=== PATIENT | male | born 1940 | race Caucasian/White ===

== ENCOUNTER 2017-08-28 05:23 | Emergency (ER) | payer BC ==
[2017-08-28] MEDS ORDERED: ASPIRIN 81 MG CHEWABLE TABLET PO ONE (05:28)
--- NOTE | 2017-08-28 05:44 | Emergency Department Record ---
History of Present Illness - General Chief Complaint: Chest Pain Stated Complaint: CHEST PAIN Time Seen by Provider: 08/28/17 05:27 Source: Patient Mode of Arrival: Ambulatory Limitations: No limitations - History of Present Illness Initial Comments: 76 yo male presents to ED for evaluation of right sided chest pain symptoms, increased fatigue, and difficulty in breathing. Patient reports history of CAD s/p stent placement approximately 18 years ago, denies history of lung disease. Patient denies pain with deep inspiration or history of DVT. Patient denies fevers, chills, or cough symptoms. Patient reports that he sees Dr. Aguero for his cardiac needs. MD Complaint: Chest pain Onset/Timin -: Days(s) Pain Location: Right chest Severity: Moderate Severity scale (1-10): 6 Quality: Sharp Consistency: Constant Improves With: Nothing Worsens With: Nothing Treatments Prior to Arrival: None - Related Data Home Medications Medication Instructions Recorded Confirmed Last Taken Adalimumab [Humira Pen] 40 mg SC ASDIR 08/28/17 08/28/17 Unknown Alfuzosin HCl [Alfuzosin HCl ER] 10 mg PO DAILY 08/28/17 08/28/17 Unknown Amlodipine Besylate [Norvasc] 10 mg PO DAILY 08/28/17 08/28/17 Unknown Atorvastatin Calcium [Lipitor] 20 mg PO DAILY 08/28/17 08/28/17 Unknown Carvedilol 12.5 mg PO BID 08/28/17 08/28/17 Unknown Cephalexin 500 mg PO QID 08/28/17 08/28/17 Unknown Cholecalciferol (Vitamin D3) 1,000 unit PO DAILY 08/28/17 08/28/17 Unknown [Vitamin D3] Fenofibrate Nanocrystallized 160 mg PO DAILY 08/28/17 08/28/17 Unknown [Triglide] Fish Oil/Dha/Epa [Fish Oil 1,200 2 each PO DAILY 08/28/17 08/28/17 Unknown mg Fish Oil] Fluoxetine HCl 20 mg PO DAILY 08/28/17 08/28/17 Unknown Omeprazole 40 mg PO DAILY 08/28/17 08/28/17 Unknown Quinapril HCl 40 mg PO DAILY 08/28/17 08/28/17 Unknown Tramadol HCl 50 mg PO BID 08/28/17 08/28/17 Unknown Allergies Allergy/AdvReac Type Severity Reaction Status Date / Time Sulfa (Sulfonamide Allergy pt unsure Verified 08/28/17 05:25 Antibiotics) Travel Screening - Travel/Exposure Within Last 30 Days Have you traveled within the last 30 days?: No Review of Systems Constitutional: Denies: Chills, Fever, Malaise, Night sweats Eyes: Denies: Eye discharge, Eye pain ENT: Denies: Congestion, Ear pain, Epistaxis Respiratory: Denies: Cough, Dyspnea Cardiovascular: Reports: Chest pain. Denies: Dyspnea on exertion Endocrine: Denies: Fatigue, Heat or cold intolerance Gastrointestinal: Denies: Abdominal pain, Nausea, Vomiting Genitourinary: Denies: Incontinence, Retention Musculoskeletal: Denies: Arthralgia, Back pain, Gout, Joint swelling Skin: Denies: Bruising, Change in color Neurological: Denies: Abnormal gait, Confusion, Headache, Seizure Psychiatric: Denies: Anxiety Hematological/Lymphatic: Denies: Anemia, Blood Clots Past Medical History - SOCIAL HISTORY Smoking Status: Never smoker Alcohol Use: None Drug Use: None - RESPIRATORY Hx Respiratory Disorders: No - CARDIOVASCULAR Hx Cardio Disorders: Yes Hx Cardiac Cath: Yes Hx Hypertension: Yes Comment:: "Leaky Valve" - NEURO Hx Neuro Disorders: No - GI Hx GI Disorders: Yes Hx Reflux: Yes - Hx Genitourinary Disorders: Yes Hx Renal Disease: Yes - ENDOCRINE Hx Endocrine Disorders: No - MUSCULOSKELETAL Hx Musculoskeletal Disorders: No - PSYCH Hx Psych Problems: Yes Hx Depression: Yes - HEMATOLOGY/ONCOLOGY Hx Hematology/Oncology Disorders: No Family Medical History Any Significant Family History?: Yes Hx Heart Disease: Father Physical Exam - General General Appearance: Alert, Oriented x3, Cooperative, No acute distress Limitations: No limitations - Head Head exam: Atraumatic, Normocephalic, Normal inspection Head exam detail: negative: Abrasion, Contusion, Merchant's sign, General tenderness, Hematoma, Laceration - Eye Eye exam: Normal appearance. negative: Conjunctival injection, Periorbital swelling, Periorbital tenderness, Scleral icterus - ENT Ear exam: negative: Auricular hematoma, Auricular trauma Nasal Exam: negative: Active bleeding, Discharge, Dried blood, Foreign body Mouth exam: negative: Drooling, Laceration, Muffled voice, Tongue elevation - Neck Neck exam: Normal inspection. negative: Meningismus, Tenderness - Respiratory Respiratory exam: Normal lung sounds bilaterally. negative: Rales, Respiratory distress, Rhonchi, Stridor - Cardiovascular Cardiovascular Exam: Regular rate, Normal rhythm, Normal heart sounds - GI/Abdominal GI/Abdominal exam: Soft. negative: Rebound, Rigid, Tenderness - Rectal Rectal exam: Deferred - exam: Deferred - Extremities Extremities exam: Normal inspection. negative: Calf tenderness, Pedal edema, Tenderness - Back Back exam: Denies: CVA tenderness (R), CVA tenderness (L) - Neurological Neurological exam: Alert, Normal gait, Oriented X3 - Psychiatric Psychiatric exam: Normal affect, Normal mood - Skin Skin exam: Normal color. negative: Abrasion Type of lesion: negative: abrasion Course Vital Signs 08/28/17 08/28/17 05:26 05:34 Temperature 97.5 F L Pulse Rate [ 64 59 L Security Associate ] Respiratory 16 20 Rate Blood Pressure 180/96 180/96 [Right Arm] Pulse Ox 99 99 - Reevaluation(s) Reevaluation #1: 08/28/17 05:43 EKG: NSR 59 Indeterminate axis, normal intervals No acute ST-T wave changes Unchanged from 03/22/17 Reevaluation #2: 08/28/17 06:14 Labs reviewed and are grossly unremarkable for an acute process. D-Dimer 0.34 BNP 115. CXR: No acute process Patient was updated on all results, will initiate transfer to [facility] for cardiac evaluation. Reevaluation #3: 08/28/17 06:18 CXR: Negative Reevaluation #4: 08/28/17 06:22 Case was discussed with Dr. Stearns, will accept transfer to [facility] for cardiac evaluation. Medical Decision Making - Lab Data Result diagrams: 08/28/17 05:37 08/28/17 05:37 Disposition Disposition: Transfer Clinical Impression: Chest pain Qualifiers: Chest pain type: unspecified Qualified Code(s): R07.9 - Chest pain, unspecified Disposition: Acute Care Hospital Transfer Transfer To: [facility] Reason For Transfer: cardiac evaluation Accepting Physician: Daryn Time Discussed w/Accepting Physician: 06:22 Condition: (2) Stable Forms: Patient Portal Access Time of Disposition: 06:22 Quality - Quality Measures Quality Measures: N/A - Blood Pressure Screening Does Patient Have Any of the Following: Active Dx of HTN Blood Pressure Classification: Hypertensive Reading Systolic Measurement: 180 Diastolic Measurement: 96 Screening for High Blood Pressure: Patient Exclusion, Hx of HTN [[id number]]
[2017-08-28 05:47] LABS: BASO % 0.6 % (0-6); EOS % 5.9 % (0-6); HEMATOCRIT 35.4 % (42.0-52.0); HEMOGLOBIN 12.1 gm/dl (14.0-18.0); LYMPH % 35.5 % (16-45); MEAN CELL VOLUME 90.1 fl (81-97); MEAN CORPUSCULAR HGB CONC 34.2 g/dl (32-36); MEAN PLATELET VOLUME 8.6 fl (7.4-10.4); PLATELET COUNT 142 K/uL (130-400); RED BLOOD COUNT 3.93 M/uL (4.40-5.70); RED CELL DISTRIBUTION WIDTH 13.1 % (11.5-14.5); WHITE BLOOD COUNT W/O DIFF 3.2 K/uL (4.2-12.2)
[2017-08-28 05:49] LABS: MEAN CORPUSCULAR HEMOGLOBIN 30.7 pg (27-33)
[2017-08-28 05:59] LABS: BLOOD UREA NITROGEN 39 mg/dL (8-23); CREATININE 1.6 mg/dL (0.7-1.2); EST GLOMERULAR FILTRATION RATE 45 mL/min
[2017-08-28 06:00] LABS: TOTAL PROTEIN 6.9 g/dL (6.6-8.7)
[2017-08-28 06:02] LABS: GLUCOSE,RANDOM 108 mg/dL (74-109)
[2017-08-28 06:04] LABS: ALB/GLOB RATIO 1.5 (1.1-1.8); ALBUMIN 4.1 g/dL (4.0-5.0); ALT/SGPT 28 U/L (<41); AST/SGOT 27 U/L (10.0-50.0)
[2017-08-28 06:05] LABS: ALKALINE PHOSPHATASE 40 U/L (40-129)
[2017-08-28] MEDS ORDERED: MORPHINE SULFATE 4MG/ML PREFILLED SYRINGE IVP ONE (06:44)
--- NOTE | 2017-08-28 13:53 | RADIOLOGY REPORT ---
EXAM: CHEST, TWO VIEWS HISTORY: MID CHEST PAIN, SHORTNESS OF BREATH FOR THREE DAYS. TECHNIQUE: PA and lateral views of the chest were obtained. Comparison: None. FINDINGS: The heart size is normal. No definite acute infiltrate is seen. No pleural effusion or pneumothorax evident. Some spurring in the spine. Old right fifth rib fracture posteriorly. Mild torsion of the aorta. IMPRESSION: 1. NO ACUTE INFILTRATE EVIDENT. 2. MILD TORSION OF THE AORTA. 3. OLD RIGHT FIFTH RIB FRACTURE. JOB NUMBER: [id number] MTDD
== END 2017-08-28 08:19 | disposition short-term general hospital (02) ==
LOC: ER 05:23
DX: R07.9 Chest pain, unspecified (principal); R06.00 Dyspnea, unspecified; I25.10 Atherosclerotic heart disease of native coronary artery without angina pectoris; I10 Essential (primary) hypertension; Z95.5 Presence of coronary angioplasty implant and graft
CPT/HCPCS: 71046; 80053; 83880; 84484; 85025; 85379; 93005; 93010; 96374; 99285; J2274

== ENCOUNTER 2019-04-08 11:04 | Observation (INO) | payer BC ==
--- NOTE | 2019-04-08 11:28 | Emergency Department Record ---
History of Present Illness - General Chief complaint: Male Urogenital Problem Stated complaint: UNABLE TO URINATE Time Seen by Provider: 04/08/19 11:25 Source: Patient Mode of Arrival: Wheelchair Limitations: No limitations - History of Present Illness Initial comments: pt has been having difficulty urinating and dysura since last night. he started getting the chills today and having nausea and vomiting MD Complaint: Dysuria Onset/Timin -: Days(s) Location: Left flank, Right flank Radiation: Back Consistency: Getting worse Reports: Dysuria, Nausea/vomiting - Related Data Sexually active: No Allergies Allergy/AdvReac Type Severity Reaction Status Date / Time Sulfa (Sulfonamide Allergy pt unsure Verified 04/08/19 11:18 Antibiotics) Travel Screening - Travel/Exposure Within Last 30 Days Have you traveled within the last 30 days?: No - Travel/Exposure Within Last Year Have you traveled outside the [place] in the last year?: No - Additonal Travel Details Have you been exposed to anyone with a communicable illness?: No - Travel Symptoms Symptom Screening: Joint & Muscle Aches Review of Systems Reviewed: No additional complaints except as noted below Constitutional: Reports: As per HPI. Denies: Chills, Fever, Malaise, Night sweats, Weakness, Weight change Eyes: Reports: As per HPI. Denies: Eye discharge, Eye pain, Photophobia, Vision change ENT: Reports: As per HPI. Denies: Congestion, Dental pain, Ear pain, Epistaxis, Hearing loss, Throat pain Respiratory: Reports: As per HPI. Denies: Cough, Dyspnea, Hemoptysis, Stridor, Wheezes Cardiovascular: Reports: As per HPI. Denies: Arrhythmia, Chest pain, Dyspnea on exertion, Edema, Murmurs, Orthopnea, Palpitations, Paroxysmal nocturnal dyspnea, Rheumatic Fever, Syncope Endocrine: Reports: As per HPI. Denies: Fatigue, Heat or cold intolerance, Polydipsia, Polyuria Gastrointestinal: Reports: As per HPI. Denies: Abdominal pain, Constipation, Diarrhea, Hematemesis, Hematochezia, Melena, Nausea, Vomiting Genitourinary: Reports: As per HPI, Dysuria, Frequency. Denies: Hematuria, Incontinence, Retention, Testicular pain, Testicular mass, Urgency Musculoskeletal: Reports: As per HPI. Denies: Arthralgia, Back pain, Gout, Joint swelling, Myalgia, Neck pain Skin: Reports: As per HPI. Denies: Bruising, Change in color, Change in hair/nails, Lesions, Pruritus, Rash Neurological: Reports: As per HPI. Denies: Abnormal gait, Confusion, Headache, Numbness, Paresthesias, Seizure, Tingling, Tremors, Vertigo, Weakness Psychiatric: Reports: As per HPI. Denies: Anxiety, Auditory hallucinations, Depression, Homicidal thoughts, Suicidal thoughts, Visual hallucinations Hematological/Lymphatic: Reports: As per HPI. Denies: Anemia, Blood Clots, Easy bleeding, Easy bruising, Swollen glands Past Medical History - SOCIAL HISTORY Smoking Status: Never smoker Alcohol Use: None Drug Use: None - RESPIRATORY Hx Respiratory Disorders: No Hx COPD: (undx'd) - CARDIOVASCULAR Hx Cardio Disorders: Yes Hx Cardiac Cath: Yes Hx Hypertension: Yes Comment:: "Leaky Valve" - NEURO Hx Neuro Disorders: No - GI Hx GI Disorders: Yes Hx Reflux: Yes - Hx Genitourinary Disorders: Yes Hx Renal Disease: Yes - ENDOCRINE Hx Endocrine Disorders: No - MUSCULOSKELETAL Hx Musculoskeletal Disorders: No - PSYCH Hx Psych Problems: Yes Hx Depression: Yes - HEMATOLOGY/ONCOLOGY Hx Hematology/Oncology Disorders: No Family Medical History Any Significant Family History?: No Hx Heart Disease: Father Physical Exam - General General Appearance: Alert, Oriented x3, Cooperative, Mild distress - Head Head exam: Normal inspection - Eye Eye exam: Normal appearance, PERRL, EOMI Pupils: Normal accommodation - ENT ENT exam: Normal exam, Mucous membranes moist, Normal external ear exam, Normal orophraynx Ear exam: Normal external inspection. negative: External canal tenderness Nasal Exam: Normal inspection. negative: Discharge, Sinus tenderness Mouth exam: Normal external inspection, Tongue normal Teeth exam: Normal inspection. negative: Dental caries Throat exam: Normal inspection. negative: Tonsillar erythema, Tonsillar exudate - Neck Neck exam: Normal inspection, Full ROM. negative: Tenderness - Respiratory Respiratory exam: Normal lung sounds bilaterally. negative: Respiratory distress - Cardiovascular Cardiovascular Exam: Regular rate, Normal rhythm, Normal heart sounds - GI/Abdominal GI/Abdominal exam: Soft, Normal bowel sounds. negative: Tenderness - Rectal Rectal exam: Deferred - exam: Deferred - Extremities Extremities exam: Normal inspection, Full ROM, Normal capillary refill. negat naz: Tenderness - Back Back exam: Reports: Normal inspection, Full ROM. Denies: Muscle spasm, Rash noted, Tenderness - Neurological Neurological exam: Alert, CN II-XII intact, Normal gait, Oriented X3 - Psychiatric Psychiatric exam: Normal affect, Normal mood - Skin Skin exam: Dry, Intact, Normal color, Warm Course Vital Signs 04/08/19 11:08 Temperature 97.4 F L Pulse Rate 89 Respiratory 24 Rate Blood Pressure 173/93 Pulse Ox 99 - Reevaluation(s) Reevaluation #1: 04/08/19 14:07 pt vomited twice despite zofran Medical Decision Making - Lab Data Result diagrams: 04/08/19 11:25 04/08/19 11:25 Disposition Disposition: Admit Clinical Impression: Pyelonephritis Disposition: Still a Patient at [facility] Decision to Admit: Admit from ER Decision to Admit Date: 04/08/19 Decision to Admit Time: 14:08 Forms: Patient Portal Access Quality - Quality Measures Quality Measures: N/A - Blood Pressure Screening Does Patient Have Any of the Following: Active Dx of HTN Blood Pressure Classification: Hypertensive Reading Systolic Measurement: 173 Diastolic Measurement: 93 Screening for High Blood Pressure: Patient Exclusion, Hx of HTN [[id number]]
[2019-04-08] MEDS ORDERED: ONDANSETRON HCL IV 4 MG/2 ML VIAL IVP ONE (11:45)
[2019-04-08 11:51] LABS: ABSOLUTE NEUTROPHIL COUNT 4.76; HEMATOCRIT 38.5 % (42.0-52.0); HEMOGLOBIN 13.2 gm/dl (14.0-18.0); MEAN CELL VOLUME 87.9 fl (81-97); MEAN CORPUSCULAR HEMOGLOBIN 30.1 pg (27-33); MEAN CORPUSCULAR HGB CONC 34.3 g/dl (32-36); MEAN PLATELET VOLUME 8.8 fl (7.4-10.4); PLATELET COUNT 180 K/uL (130-400); RED BLOOD COUNT 4.38 M/uL (4.40-5.70); RED CELL DISTRIBUTION WIDTH 13.6 % (11.5-14.5); WHITE BLOOD COUNT W/O DIFF 5.7 K/uL (4.2-12.2)
[2019-04-08 11:55] LABS: URINE APPEARANCE CLEAR; URINE BILIRUBIN NEGATIVE (NEGATIVE); URINE BLOOD TRACE-I (NEGATIVE); URINE COLOR YELLOW; URINE GLUCOSE (UA) NEGATIVE (NEGATIVE); URINE KETONE NEGATIVE (NEGATIVE); URINE LEUKOCYTE ESTERASE SMALL (NEGATIVE); URINE NITRITE NEGATIVE (NEGATIVE); URINE UROBILINOGEN 0.2 E.U./dL (0.20 - 1.00)
[2019-04-08 11:58] LABS: CREATININE 1.7 mg/dL (0.7-1.2)
[2019-04-08 12:03] LABS: URINE BACTERIA NONE SEEN; URINE EPITHELIAL CELLS NONE SEEN (FEW); URINE RBC 0 - 2 (NONE SEEN)
[2019-04-08 12:05] LABS: INFLUENZA A NEGATIVE (NEGATIVE); INFLUENZA B NEGATIVE (NEGATIVE)
[2019-04-08] MEDS ORDERED: PROMETHAZINE HCL 6.25 MG in 0.9 % SODIUM CHLORIDE 100ML 100 ML IVPB ONE (12:58)
[2019-04-08] MEDS ORDERED: CIPROFLOXACIN LACTATE/D5W 400 MG/200 ML BAG IVPB ONE (13:21)
[2019-04-08] MEDS ORDERED: ACETAMINOPHEN 500 MG TABLET PO PRN (15:03)
[2019-04-08] MEDS ORDERED: ALBUTEROL HFA 8 GM INHALER INH SCH ×2 (15:03→22:00)
[2019-04-08] MEDS ORDERED: LEVOTHYROXINE SODIUM 25 MCG TABLET PO SCH (15:03)
[2019-04-08] MEDS ORDERED: PROMETHAZINE HCL 6.25 MG in 0.9 % SODIUM CHLORIDE 100ML 100 ML IVPB PRN (15:03)
[2019-04-08] MEDS ORDERED: 0.9 % SODIUM CHLORIDE 1000ML 1,000 ML IV ONE (15:03)
[2019-04-08] MEDS ORDERED: LORATADINE 10 MG TABLET PO SCH (15:03)
[2019-04-08] MEDS ORDERED: TRAMADOL HCL 50 MG TABLET PO PRN (15:03)
[2019-04-08] MEDS: CIPROFLOXACIN LACTATE/D5W 400 MG/200 ML BAG IVPB SCH (15:10)
[2019-04-08] MEDS ORDERED: IPRATROPIUM BR 0.02% NEB (0.5MG) INH SCH (15:30)
[2019-04-08] MEDS: GABAPENTIN 300 MG CAPSULE PO SCH ×2 (15:44→21:45)
[2019-04-08] MEDS: ALFUZOSIN 10 MG PO SCH (17:13)
[2019-04-08] MEDS: FENOFIBRATE 160 MG PO SCH (17:14)
[2019-04-08] MEDS: CARVEDILOL 12.5 MG TABLET PO SCH (21:45)
[2019-04-08] MEDS: PHENAZOPYRIDINE HCL 95 MG TABLET PO SCH (23:14)
[2019-04-09] MEDS: CIPROFLOXACIN LACTATE/D5W 400 MG/200 ML BAG IVPB SCH (02:27)
[2019-04-09 06:42] LABS: HEMATOCRIT 31.9 % (42.0-52.0); HEMOGLOBIN 10.7 gm/dl (14.0-18.0); MEAN CELL VOLUME 88.9 fl (81-97); MEAN CORPUSCULAR HEMOGLOBIN 29.8 pg (27-33); MEAN CORPUSCULAR HGB CONC 33.5 g/dl (32-36); MEAN PLATELET VOLUME 8.5 fl (7.4-10.4); PLATELET COUNT 103 K/uL (130-400); RED BLOOD COUNT 3.59 M/uL (4.40-5.70); RED CELL DISTRIBUTION WIDTH 13.7 % (11.5-14.5); WHITE BLOOD COUNT W/O DIFF 4.4 K/uL (4.2-12.2)
[2019-04-09 06:52] LABS: CREATININE 1.8 mg/dL (0.7-1.2)
[2019-04-09] MEDS ORDERED: PANTOPRAZOLE SODIUM 40 MG TABLET PO SCH (07:00)
[2019-04-09 07:09] LABS: PLATELET ESTIMATE DECREASED (NORMAL)
[2019-04-09] MEDS: GABAPENTIN 300 MG CAPSULE PO SCH (09:55)
[2019-04-09] MEDS: PHENAZOPYRIDINE HCL 95 MG TABLET PO SCH (09:55)
[2019-04-09] MEDS: CARVEDILOL 12.5 MG TABLET PO SCH (09:56)
--- NOTE | 2019-04-09 09:58 | History & Physical ---
History of Present Illness - Date of Service Date of Service for History & Physical: 04/09/19 - History of Present Illness Admitting Diagnosis: pyelonephritis History of Present Illness: 04/08/19 Patient is a 78 male that presented to ER for body aches, abdominal pain, nausea/vomiting, bilateral flank pain and dysuria for 1 day. Patient vomited twice while in ER despite being given Zofran for nausea. Patient unable to tolerate PO medications and admitted for IV hydration and antibiotics. Past medical history: HTN, Cardiac Stent, COPD/Chronic Bronchitits, CKD (sees washhouse hand). PCP: Jairo Barbosa MD ED Course: Vital Signs 04/08/19 11:08 Temperature 97.4 F L Pulse Rate 89 Respiratory 24 Rate Blood Pressure 173/93 Pulse Ox 99 Laboratory Tests 04/08/19 04/08/19 04/08/19 11:25 11:25 11:25 WBC 5.7 RBC 4.38 L Hgb 13.2 L Hct 38.5 L MCV 87.9 MCH 30.1 MCHC 34.3 RDW 13.6 Plt Count 180 MPV 8.8 Neutrophils % 84.0 H Band Neutrophils % 1.0 Eosinophils % Not Reportable Basophils % Not Reportable Absolute Neutrophils 4.76 Lymphocytes 12.0 L Monocytes 2.0 Platelet Estimate RBC Morphology Eosinophil Count 1.0 Sodium 138 Potassium 4.4 Chloride 100 Carbon Dioxide 17.0 L Anion Gap 21.0 H BUN 29 H Creatinine 1.7 H Estimated GFR 42 Random Glucose 153 H Calcium 9.7 Urine Color Yellow Urine Appearance Clear Urine pH 6.5 Ur Specific [place] 1.020 Urine Protein 100 mg/dl H Urine Glucose (UA) Negative Urine Ketones Negative Urine Blood Trace-i Urine Nitrite Negative Urine Bilirubin Negative Urine Urobilinogen 0.2 Ur Leukocyte Esterase Small H Urine RBC 0 - 2 Urine WBC 10 - 15 Ur Epithelial Cells None seen Urine Bacteria None seen Influenza Type A Ag Influenza Type B Ag 04/09/19 Patient A&Ox4, resting comfortably in bed. Denies vomiting. Able to tolerate PO intake with breakfast. Patient reports feeling better this AM. Travel Screening - Travel/Exposure Within Last 30 Days Have you traveled within the last 30 days?: No - Travel/Exposure Within Last Year Have you traveled outside the [place] in the last year?: No - Additonal Travel Details Have you been exposed to anyone with a communicable illness?: No - Travel Symptoms Symptom Screening: Joint & Muscle Aches Review of Systems Reviewed: No additional complaints except as noted below Constitutional: Reports: As per HPI, Chills, Malaise. Denies: Fever, Night sweats, Weakness, Weight change Eyes: Reports: As per HPI. Denies: Eye discharge, Eye pain, Photophobia, Vision change ENT: Reports: As per HPI. Denies: Congestion, Dental pain, Ear pain, Epistaxis, Hearing loss, Throat pain Respiratory: Reports: As per HPI. Denies: Cough, Dyspnea, Hemoptysis, Stridor, Wheezes Cardiovascular: Reports: As per HPI. Denies: Arrhythmia, Chest pain, Dyspnea on exertion, Edema, Murmurs, Orthopnea, Palpitations, Paroxysmal nocturnal dyspnea, Rheumatic Fever, Syncope Endocrine: Reports: As per HPI. Denies: Fatigue, Heat or cold intolerance, Polydipsia, Polyuria Gastrointestinal: Reports: As per HPI, Abdominal pain, Nausea, Vomiting. Denies: Constipation, Diarrhea, Hematemesis, Hematochezia, Melena Genitourinary: Reports: As per HPI, Dysuria, Frequency. Denies: Hematuria, Incontinence, Retention, Testicular pain, Testicular mass, Urgency Musculoskeletal: Reports: As per HPI. Denies: Arthralgia, Back pain, Gout, Joint swelling, Myalgia, Neck pain Skin: Reports: As per HPI. Denies: Bruising, Change in color, Change in hair/nails, Lesions, Pruritus, Rash Neurological: Reports: As per HPI. Denies: Abnormal gait, Confusion, Headache, Numbness, Paresthesias, Seizure, Tingling, Tremors, Vertigo, Weakness Psychiatric: Reports: As per HPI. Denies: Anxiety, Auditory hallucinations, Depression, Homicidal thoughts, Suicidal thoughts, Visual hallucinations Hematological/Lymphatic: Reports: As per HPI. Denies: Anemia, Blood Clots, Easy bleeding, Easy bruising, Swollen glands Past Medical History - SOCIAL HISTORY Smoking Status: Never smoker Alcohol Use: None Drug Use: None - RESPIRATORY Hx Respiratory Disorders: No Hx COPD: (undx'd) - CARDIOVASCULAR Hx Cardio Disorders: Yes Hx Cardiac Cath: Yes Hx Hypertension: Yes Comment:: "Leaky Valve" - NEURO Hx Neuro Disorders: No - GI Hx GI Disorders: Yes Hx Reflux: Yes - Hx Genitourinary Disorders: Yes Hx Renal Disease: Yes - ENDOCRINE Hx Endocrine Disorders: Yes Hx Thyroid Disease: Yes - MUSCULOSKELETAL Hx Musculoskeletal Disorders: No - PSYCH Hx Psych Problems: Yes Hx Depression: Yes - HEMATOLOGY/ONCOLOGY Hx Hematology/Oncology Disorders: No Family Medical History Any Significant Family History?: Yes Hx Heart Disease: Father H&P Meds/Allergies - Allergies Allergies: Allergies Allergy/AdvReac Type Severity Reaction Status Date / Time Sulfa (Sulfonamide Allergy pt unsure Verified 04/08/19 11:18 Antibiotics) - Active Medications Active Medications: Current Medications Acetaminophen (Tylenol 500mg Tab) 1,000 mg PO Q6H PRN PRN Reason: PAIN - MILD(1-4)/FEVER Albuterol Sulfate (Ventolin Hfa) 2 puff INH BID [facility] Last Admin: 04/09/19 09:35 Dose: 2 puff Documented by: Amlodipine Besylate (Norvasc) 10 mg PO DAILY [facility] Aspirin (Aspirin, Regular) 325 mg PO DAILY [facility] Atorvastatin Calcium (Lipitor) 40 mg PO DAILY [facility] Carvedilol (Coreg) 12.5 mg PO BID [facility] Last Admin: 04/08/19 21:45 Dose: 12.5 mg Documented by: Fluoxetine HCl (Prozac) 40 mg PO DAILY [facility] Gabapentin (Neurontin) 300 mg PO TID [facility] Last Admin: 04/08/19 21:45 Dose: 300 mg Documented by: Hydrochlorothiazide (Hctz 12.5mg) 12.5 mg PO DAILY [facility] Ciprofloxacin Lactate (Cipro) 400 mg in 200 mls @ 200 mls/hr IVPB Q12H [facility] Stop: 04/13/19 15:04 Last Infusion: 04/09/19 04:13 Dose: Infused Documented by: Promethazine HCl 6.25 mg/ (Sodium Chloride) 100.25 mls @ 200 mls/hr IVPB Q6H PRN PRN Reason: NAUSEA/VOMITING Ipratropium [place] (Atrovent 0.02% Neb) 2.5 ml INH 1200 [facility] Levothyroxine Sodium (Synthroid) 25 mcg PO DAILYTHY [facility] Loratadine (Claritin) 10 mg PO DAILY [facility] Losartan Potassium (Cozaar) 50 mg PO DAILY [facility] Meloxicam (Mobic) 15 mg PO DAILY [facility] Pantoprazole Sodium (Protonix) 80 mg PO DAILYAC [facility] Last Admin: 04/09/19 06:27 Dose: 80 mg Documented by: Patient Own Med: (Fenofibrate 160mg) 1 each PO DAILY [facility] Last Admin: 04/08/19 17:14 Dose: Not Given Documented by: Patient Own Med: Alfuzosin (Uroxatral ) 10mg Tablet 1 each PO DAILY [facility] Last Admin: 04/08/19 17:13 Dose: 1 each Documented by: Phenazopyridine HCl (Azo Urinary Pain Relief) 190 mg PO TID [facility] Last Admin: 04/08/19 23:14 Dose: 190 mg Documented by: Tramadol HCl (Ultram) 50 mg PO TID PRN PRN Reason: PAIN - MILD TO MODERATE (1-7) Physical Exam - Vital Signs Vital Signs: Vital Signs - Last 24 Hrs Temp Pulse Pulse Resp BP BP Pulse Ox 04/09/19 09:36 88 18 96 04/09/19 08:36 98.6 F 81 18 139/71 96 04/09/19 05:00 98.4 F 80 18 143/72 97 04/09/19 00:11 98.6 F 71 18 141/72 96 04/08/19 21:03 97.9 F 87 18 143/85 97 04/08/19 21:00 16 04/08/19 15:25 20 04/08/19 15:03 98.5 F 95 H 16 137/76 100 04/08/19 14:38 104 H 18 143/90 95 04/08/19 13:01 98.1 F 96 H 18 159/92 100 04/08/19 12:23 98.3 F 93 H 20 181/89 98 04/08/19 11:44 97.8 F 04/08/19 11:08 97.4 F L 89 24 173/93 99 - General General Appearance: Alert, Oriented x3, Cooperative Limitations: No limitations - Head Head exam: Normal inspection - Eye Eye exam: Normal appearance - ENT ENT exam: Normal exam, Mucous membranes moist Ear exam: negative: External canal tenderness Nasal Exam: negative: Discharge, Sinus tenderness Teeth exam: negative: Dental caries Throat exam: negative: Tonsillar erythema, Tonsillar exudate - Neck Neck exam: Normal inspection, Full ROM. negative: Tenderness - Respiratory Respiratory exam: Normal lung sounds bilaterally. negative: Respiratory distress - Cardiovascular Cardiovascular Exam: Regular rate, Normal rhythm, Normal heart sounds Peripheral Pulses: 2+: Dorsalis Pedis (R), Dorsalis Pedis (L) - GI/Abdominal GI/Abdominal exam: Soft, Normal bowel sounds, Tenderness (generalized tenderness with palpation throughout) - Rectal Rectal exam: Deferred - exam: Deferred - Extremities Extremities exam: Normal inspection, Full ROM, Normal capillary refill. negative: Tenderness - Back Back exam: Reports: Full ROM. Denies: Muscle spasm, Rash noted, Tenderness - Neurological Neurological exam: Alert, Oriented X3 - Psychiatric Psychiatric exam: Normal affect, Normal mood - Skin Skin exam: Dry, Intact, Normal color, Warm Results - Labs Result Diagrams: 04/09/19 06:25 04/09/19 06:25 Labs Last 24 Hours: Laboratory Results - last 24 hr 04/08/19 04/08/19 04/08/19 11:25 11:25 11:25 WBC 5.7 RBC 4.38 L Hgb 13.2 L Hct 38.5 L MCV 87.9 MCH 30.1 MCHC 34.3 RDW 13.6 Plt Count 180 MPV 8.8 Neutrophils % 84.0 H Band Neutrophils % 1.0 Eosinophils % Not Reportable Basophils % Not Reportable Absolute Neutrophils 4.76 Lymphocytes 12.0 L Monocytes 2.0 Platelet Estimate RBC Morphology Eosinophil Count 1.0 Sodium 138 Potassium 4.4 Chloride 100 Carbon Dioxide 17.0 L Anion Gap 21.0 H BUN 29 H Creatinine 1.7 H Estimated GFR 42 Random Glucose 153 H Calcium 9.7 Urine Color Yellow Urine Appearance Clear Urine pH 6.5 Ur Specific [place] 1.020 Urine Protein 100 mg/dl H Urine Glucose (UA) Negative Urine Ketones Negative Urine Blood Trace-i Urine Nitrite Negative Urine Bilirubin Negative Urine Urobilinogen 0.2 Ur Leukocyte Esterase Small H Urine RBC 0 - 2 Urine WBC 10 - 15 Ur Epithelial Cells None seen Urine Bacteria None seen Influenza Type A Ag Influenza Type B Ag 04/08/19 04/09/19 04/09/19 11:25 06:25 06:25 WBC 4.4 RBC 3.59 L Hgb 10.7 L Hct 31.9 L MCV 88.9 MCH 29.8 MCHC 33.5 RDW 13.7 Plt Count 103 L MPV 8.5 Neutrophils % 77.0 Band Neutrophils % 3.0 Eosinophils % Not Reportable Basophils % Not Reportable Absolute Neutrophils Not Reportable Lymphocytes 11.0 L Monocytes 9.0 Platelet Estimate Decreased RBC Morphology Normal Eosinophil Count Sodium 137 Potassium 4.1 Chloride 104 Carbon Dioxide 19.0 L Anion Gap 14.0 BUN 28 H Creatinine 1.8 H Estimated GFR 39 Random Glucose 112 H Calcium 8.5 L Urine Color Urine Appearance Urine pH Ur Specific [place] Urine Protein Urine Glucose (UA) Urine Ketones Urine Blood Urine Nitrite Urine Bilirubin Urine Urobilinogen Ur Leukocyte Esterase Urine RBC Urine WBC Ur Epithelial Cells Urine Bacteria Influenza Type A Ag Negative Influenza Type B Ag Negative VTE H&P Assessment - Risk for VTE Risk for VTE: Yes Risk Level: Low Risk Assessment Date: 04/09/19 Risk Assessment Time: 10:01 VTE Orders Placed or Will Be Placed: No VTE Reason for No Prophylaxis: Not Indicated (Patient expected D/C today. Ambulating ad giovanni in room without difficulty.) Plan - Detailed Diagnosis and Plan (1) Pyelonephritis Current Visit: Yes Status: Acute Base Code: N12 - TUBULO-INTERSTITIAL NEPHRITIS, NOT SPCF ACUTE OR CHRONIC Comment: 04/09/19 -IV hydration: NS 100ml/hr -IV Cipro 400mg q12h -UA small Leuks, 10-15 WBC -Dysuria on Pyridium -Afebrile -WBC 5.7 (2) Nausea & vomiting Current Visit: Yes Status: Acute Base Code: R11.2 - NAUSEA WITH VOMITING, UNSPECIFIED Comment: 04/09/19 -Vomiting in ER despite receiving 2 doses of Zofran -Received Phenergan on admission -Nausea controlled -Tolerating PO intake (3) HTN (hypertension) Current Visit: Yes Status: Acute Base Code: I10 - ESSENTIAL (PRIMARY) HYPERTENSION Comment: 04/09/19 -Last BP 139/71 -Continue Coreg -Continue HCTZ -Continue Amlodipine (4) CKD (chronic kidney disease) Current Visit: Yes Status: Acute Base Code: N18.9 - CHRONIC KIDNEY DISEASE, UNSPECIFIED Comment: 04/09/19 -Cr 1.7 -GFR 42 -At baseline -Patient follows with Dobby Loom Fixer annually (5) DVT prophylaxis Current Visit: Yes Status: Acute Base Code: Z29.9 - ENCOUNTER FOR PROPHYL ACTIC MEASURES, UNSPECIFIED Comment: 04/09/19 -Patient ambulating in room without assist -Anticipated D/C within 24 hours (6) Full code status Current Visit: Yes Status: Acute Base Code: Z78.9 - OTHER SPECIFIED HEALTH STATUS
[2019-04-09] MEDS ORDERED: LEVOTHYROXINE SODIUM 25 MCG TABLET PO SCH (10:00)
[2019-04-09] MEDS ORDERED: LORATADINE 10 MG TABLET PO SCH (10:00)
[2019-04-09] MEDS ORDERED: ALBUTEROL HFA 8 GM INHALER INH SCH (10:00)
[2019-04-09] MEDS ORDERED: MELOXICAM 7.5 MG TABLET PO SCH (10:00)
[2019-04-09] MEDS ORDERED: AMLODIPINE BESYLATE 5MG TAB PO SCH (10:00)
[2019-04-09] MEDS ORDERED: HYDROCHLOROTHIAZIDE 12.5 MG CAPSULE PO SCH (10:00)
[2019-04-09] MEDS ORDERED: ATORVASTATIN 20 MG TABLET PO SCH (10:00)
[2019-04-09] MEDS ORDERED: LOSARTAN POTASSIUM 25 MG TABLET PO SCH (10:00)
[2019-04-09] MEDS ORDERED: FLUOXETINE HCL 20 MG CAPSULE PO SCH (10:00)
[2019-04-09] MEDS ORDERED: ASPIRIN 325 MG TABLET PO SCH (10:00)
[2019-04-09] MEDS: ALFUZOSIN 10 MG PO SCH (10:02)
[2019-04-09] MEDS: FENOFIBRATE 160 MG PO SCH (10:05)
--- NOTE | 2019-04-09 10:14 | Discharge Summary ---
Providers Discharge Summary Date: 04/09/19 Date of admission: 04/08/19 14:50 Expected Date of Discharge: 04/09/19 Attending physician: MONCHO COSTA Primary care physician: MONCHO COSTA Physical Exam - Vital Signs Vital Signs: Vital Signs - Last 24 Hrs Temp Pulse Pulse Resp BP BP Pulse Ox 04/09/19 09:36 88 18 96 04/09/19 08:36 98.6 F 81 18 139/71 96 04/09/19 05:00 98.4 F 80 18 143/72 97 04/09/19 00:11 98.6 F 71 18 141/72 96 04/08/19 21:03 97.9 F 87 18 143/85 97 04/08/19 21:00 16 04/08/19 15:25 20 04/08/19 15:03 98.5 F 95 H 16 137/76 100 04/08/19 14:38 104 H 18 143/90 95 04/08/19 13:01 98.1 F 96 H 18 159/92 100 04/08/19 12:23 98.3 F 93 H 20 181/89 98 04/08/19 11:44 97.8 F 04/08/19 11:08 97.4 F L 89 24 173/93 99 - General General Appearance: Alert, Oriented x3, Cooperative Limitations: No limitations - Head Head exam: Normal inspection - Eye Eye exam: Normal appearance - ENT Ear exam: negative: External canal tenderness Nasal Exam: negative: Discharge, Sinus tenderness Teeth exam: negative: Dental caries Throat exam: negative: Tonsillar erythema, Tonsillar exudate - Neck Neck exam: Normal inspection, Full ROM. negative: Tenderness - Respiratory Respiratory exam: Normal lung sounds bilaterally. negative: Respiratory distress - Cardiovascular Cardiovascular Exam: Regular rate, Normal rhythm, Normal heart sounds Peripheral Pulses: 2+: Dorsalis Pedis (R), Dorsalis Pedis (L) - GI/Abdominal GI/Abdominal exam: Soft, Normal bowel sounds, Tenderness (generalized tenderness with palpation throughout) - Rectal Rectal exam: Deferred - exam: Deferred - Extremities Extremities exam: Normal inspection, Full ROM, Normal capillary refill. negative: Tenderness - Back Back exam: Reports: Full ROM. Denies: Muscle spasm, Rash noted, Tenderness - Neurological Neurological exam: Alert, Oriented X3 - Psychiatric Psychiatric exam: Normal affect, Normal mood - Skin Skin exam: Dry, Intact, Normal color, Warm Hospitalization - Hospitalization Admission Diagnosis: pyelonephritis - Problem List/Discharge Diagnosis (1) Pyelonephritis Current Visit: Yes Status: Acute Base Code: N12 - TUBULO-INTERSTITIAL NEPHRITIS, NOT SPCF ACUTE OR CHRONIC Comment: 04/09/19 -IV hydration: NS 100ml/hr -IV Cipro 400mg q12h, will D/C on Oral Cipro for 10 days total -UA small Leuks, 10-15 WBC -Dysuria on Pyridium, will continue for 3 days total -Afebrile -WBC 5.7 (2) Nausea & vomiting Current Visit: Yes Status: Acute Base Code: R11.2 - NAUSEA WITH VOMITING, UNSPECIFIED Comment: 04/09/19 -Vomiting in ER despite receiving 2 doses of Zofran -Received Phenergan on admission -Nausea controlled -Tolerating PO intake (3) HTN (hypertension) Current Visit: Yes Status: Acute Base Code: I10 - ESSENTIAL (PRIMARY) HYPERTENSION Comment: 04/09/19 -Last BP 139/71 -Continue Coreg -Continue HCTZ -Continue Amlodipine (4) CKD (chronic kidney disease) Current Visit: Yes Status: Acute Base Code: N18.9 - CHRONIC KIDNEY DISEASE, UNSPECIFIED Comment: 04/09/19 -Cr 1.7 -GFR 42 -At baseline -Patient follows with Packaging Assembler annually (5) DVT prophylaxis Current Visit: Yes Status: Acute Base Code: Z29.9 - ENCOUNTER FOR PROPHYLACTIC MEASURES, UNSPECIFIED Comment: 04/09/19 -Patient ambulating in room without assist -Anticipated D/C within 24 hours (6) Full code status Current Visit: Yes Status: Acute Base Code: Z78.9 - OTHER SPECIFIED HEALTH STATUS - Hospitalization Course Disposition: Home, Self-Care Hospital Course: 04/08/19 Patient is a 78 male that presented to ER for body aches, abdominal pain, nausea/vomiting, bilateral flank pain and dysuria for 1 day. Patient vomited twice while in ER despite being given Zofran for nausea. Patient unable to tolerate PO medications and admitted for IV hydration and antibiotics. Past medical history: HTN, Cardiac Stent, COPD/Chronic Bronchitits, CKD (sees interior design professional). PCP: Moncho Costa MD ED Course: Vital Signs 04/08/19 11:08 Temperature 97.4 F L Pulse Rate 89 Respiratory 24 Rate Blood Pressure 173/93 Pulse Ox 99 Laboratory Tests 04/08/19 04/08/19 04/08/19 11:25 11:25 11:25 WBC 5.7 RBC 4.38 L Hgb 13.2 L Hct 38.5 L MCV 87.9 MCH 30.1 MCHC 34.3 RDW 13.6 Plt Count 180 MPV 8.8 Neutrophils % 84.0 H Band Neutrophils % 1.0 Eosinophils % Not Reportable Basophils % Not Reportable Absolute Neutrophils 4.76 Lymphocytes 12.0 L Monocytes 2.0 Platelet Estimate RBC Morphology Eosinophil Count 1.0 Sodium 138 Potassium 4.4 Chloride 100 Carbon Dioxide 17.0 L Anion Gap 21.0 H BUN 29 H Creatinine 1.7 H Estimated GFR 42 Random Glucose 153 H Calcium 9.7 Urine Color Yellow Urine Appearance Clear Urine pH 6.5 Ur Specific [place] 1.020 Urine Protein 100 mg/dl H Urine Glucose (UA) Negative Urine Ketones Negative Urine Blood Trace-i Urine Nitrite Negative Urine Bilirubin Negative Urine Urobilinogen 0.2 Ur Leukocyte Esterase Small H Urine RBC 0 - 2 Urine WBC 10 - 15 Ur Epithelial Cells None seen Urine Bacteria None seen Influenza Type A Ag Influenza Type B Ag 04/09/19 Patient A&Ox4, resting comfortably in bed. Denies vomiting. Able to tolerate PO intake with breakfast. Patient reports feeling better this AM. Abnormal Labs: Abnormal Lab Results 04/08/19 04/08/19 04/08/19 Range/Units 11:25 11:25 11:25 RBC 4.38 L (4.40-5.70) M/uL Hgb 13.2 L (14.0-18.0) gm/dl Hct 38.5 L (42.0-52.0) % Plt Count (130-400) K/uL Neutrophils % 84.0 H (47-80) % Lymphocytes 12.0 L (16-45) % Carbon Dioxide 17.0 L (22-29) mmol/L Anion Gap 21.0 H (7-16) BUN 29 H (8-23) mg/dL Creatinine 1.7 H (0.7-1.2) mg/dL Random Glucose 153 H (74-109) mg/dL Calcium (8.8-10.2) mg/dL Urine Protein 100 mg/dl H (NEGATIVE) Ur Leukocyte Esterase Small H (NEGATIVE) 04/09/19 04/09/19 Range/Units 06:25 06:25 RBC 3.59 L (4.40-5.70) M/uL Hgb 10.7 L (14.0-18.0) gm/dl Hct 31.9 L (42.0-52.0) % Plt Count 103 L (130-400) K/uL Neutrophils % (47-80) % Lymphocytes 11.0 L (16-45) % Carbon Dioxide 19.0 L (22-29) mmol/L Anion Gap (7-16) BUN 28 H (8-23) mg/dL Creatinine 1.8 H (0.7-1.2) mg/dL Random Glucose 112 H (74-109) mg/dL Calcium 8.5 L (8.8-10.2) mg/dL Urine Protein (NEGATIVE) Ur Leukocyte Esterase (NEGATIVE) Condition at Discharge: (2) Stable Discharge Medications - Discharge Medications Prescriptions: Ciprofloxacin HCl [Cipro] 500 mg PO Q12HR 9 Days #18 tablet Phenazopyridine HCl [Azo Urinary Pain Relief] 190 mg PO TID 2 Days #6 tablet Home Medications: Ambulatory Orders Carvedilol 12.5 mg PO BID 90 Days #180 08/28/17 [Last Taken Unknown] Cholecalciferol (Vitamin D3) [Vitamin D3] 1,000 unit PO DAILY 08/28/17 [Last Taken Unknown] Fenofibrate Nanocrystallized [Triglide] 160 mg PO DAILY 08/28/17 [Last Taken Unknown] Fish Oil/Dha/Epa [Fish Oil 1,200 mg Fish Oil] 2 each PO DAILY 08/28/17 [Last Taken Unknown] Aspirin 325 mg PO DAILY 90 Days #90 tab 09/13/18 [Last Taken Unknown] Ciprofloxacin HCl [Cipro] 500 mg PO Q12HR 9 Days #18 tablet 04/09/19 [Last Taken Unknown] Phenazopyridine HCl [Azo Urinary Pain Relief] 190 mg PO TID 2 Days #6 tablet 04/09/19 [Last Taken Unknown] Tramadol HCl 50 mg PO TID PRN 30 Days #90 tab 04/09/19 [Last Taken Unknown] Discharge Plan - Discharge Instructions Activity at Discharge: Increase Activity as Tolerated Diet at Discharge: Advance to Usual Diet Additional Instructions: -Begin Cipro antibiotic tonight and continue twice daily -Increase fluids as tolerated -Follow up with PCP in 10-14 days Quality Measures - Quality Measures Quality Measures: Advance Directives, Documentation of Current Medications in Medical Record, Elder Maltreatment Screen and Follow-Up Plan, Screening for High Blood Pressure and F/U Documented - Current Medications Quality Measure: Measure #130: Documentation of Current Medications Documentation of Current Medications: <Current Medications Documented/Reviewed> [[id number]] - Blood Pressure Screening Quality Measure: Screening for High Blood Pressure and Follow-Up Documented Does Patient Have Any of the Following: Active Dx of HTN Blood Pressure Classification: Hypertensive Reading Systolic Measurement: 143 Diastolic Measurement: 90 Screening for High Blood Pressure: Patient Exclusion, Hx of HTN [[id number]] - Advance Directives Quality Measure: Measure #47: Care Plan Advance Directives Established: No Advance Directives Information Provided To Patient: Declined Advance Directives on File: No Living Will: No Power of Registered Safety Engineer: No Advance Care Planning: Not Discussed or Documented [[id number]] - Elder Abuse Suspicion Index Screening: Elder Abuse Suspicion Index Screening Rely on people for bathing, dressing, shopping, banking, etc: No Prevented from getting food, clothes, medication, etc: No Made to feel shamed or threatened by someone: No Forced to sign papers or use money against will: No Feel afraid, touched in ways not wanted or hurt physically: No Poor eye contact, withdrawn, malnourished, cuts or bruises: No Screening Result: Negative result EASI Reference Information: Lucho KENDALL, Ellen C, Lisa D, Blanca Simmons.Development and validation of a tool to assist physicians identification of elder abuse: The Elder Abuse Suspicion Index (EASI ). Journal of Elder Abuse and Neglect, 2008; 20 (3): 276-300. - Elder Maltreatment Screen Quality Measures: Elder Maltreatment Screen and Follow-Up Plan Elder Maltreatment Screen: <Negative, No Follow-Up Plan Required> [[id number]]
[2019-04-09] MEDS ORDERED: IPRATROPIUM BR 0.02% NEB (0.5MG) INH SCH (12:00)
== END 2019-04-09 11:16 | disposition home or self-care (01) ==
LOC: ER 11:04 → MEDSURG 14:50
PROVIDERS: ADMIT Internal Medicine; ATTEND Internal Medicine
DX: G89.29 Other chronic pain (principal); M47.26 Other spondylosis with radiculopathy, lumbar region; N12 Tubulo-interstitial nephritis, not specified as acute or chronic; N18.9 Chronic kidney disease, unspecified; R10.9 Unspecified abdominal pain; R11.2 Nausea with vomiting, unspecified; R68.83 Chills (without fever); I10 Essential (primary) hypertension; K21.9 Gastro-esophageal reflux disease without esophagitis; Z95.5 Presence of coronary angioplasty implant and graft; Z98.61 Coronary angioplasty status
CPT/HCPCS: 80048 ×2; 81001; 87400; 85027 ×2; 94664; 94640 ×2; G0378 ×2; J0744 ×2; J2405; 96365; 96366; 99220; 99285; J2550

== ENCOUNTER 2019-05-13 08:12 | Inpatient (IN) | payer BC ==
[2019-05-13 08:35] LABS: ABSOLUTE NEUTROPHIL COUNT 5.59; BASO % 0.2 % (0-6); EOS % 0.6 % (0-6); HEMOGLOBIN 11.3 gm/dl (14.0-18.0); MEAN CORPUSCULAR HGB CONC 33.2 g/dl (32-36); MEAN PLATELET VOLUME 8.7 fl (7.4-10.4); MONO % 4.9 % (0-9); PLATELET COUNT 123 K/uL (130-400); RED BLOOD COUNT 3.82 M/uL (4.40-5.70); RED CELL DISTRIBUTION WIDTH 13.3 % (11.5-14.5); WHITE BLOOD COUNT W/O DIFF 6.5 K/uL (4.2-12.2)
[2019-05-13 08:38] LABS: MEAN CORPUSCULAR HEMOGLOBIN 29.5 pg (27-33)
[2019-05-13 08:44] LABS: CREATININE 1.6 mg/dL (0.7-1.2)
--- NOTE | 2019-05-13 08:50 | Emergency Department Record ---
History of Present Illness - General Chief Complaint: Abdominal Pain Stated Complaint: UTI/ABD PAIN Time Seen by Provider: 05/13/19 08:13 Source: Patient, EMS Mode of Arrival: EMS Limitations: No limitations - History of Present Illness Initial Comments: pt brought in by ems for lower abdominal pain. pt was given 30mg of toradol and zofran in the ambulance. pt has nausea and feels similar to what he felt when he was admitted for pylonephritis a month ago. he has pain and swelling of his scrotum as well. he has had erythema of this area for a long time and was seen at [facility] for it. MD Complaint: Abdominal pain Onset/Timin -: Hour(s) Location: Suprapubic Severity: Moderate Severity scale (1-10): 8 Quality: Cramping, Stabbing Consistency: Constant Improves With: Nothing Worsens With: Nothing Associated Symptoms: Fever, Nausea, Vomiting - Related Data Allergies Allergy/AdvReac Type Severity Reaction Status Date / Time Sulfa (Sulfonamide Allergy pt unsure Verified 05/13/19 08:18 Antibiotics) Travel Screening - Travel/Exposure Within Last 30 Days Have you traveled within the last 30 days?: No Review of Systems Reviewed: No additional complaints except as noted below Constitutional: Reports: As per HPI. Denies: Chills, Fever, Malaise, Night sweats, Weakness, Weight change Eyes: Reports: As per HPI. Denies: Eye discharge, Eye pain, Photophobia, Vision change ENT: Reports: As per HPI. Denies: Congestion, Dental pain, Ear pain, Epistaxis, Hearing loss, Throat pain Respiratory: Reports: As per HPI. Denies: Cough, Dyspnea, Hemoptysis, Stridor, Wheezes Cardiovascular: Reports: As per HPI. Denies: Arrhythmia, Chest pain, Dyspnea on exertion, Edema, Murmurs, Orthopnea, Palpitations, Paroxysmal nocturnal dyspnea, Rheumatic Fever, Syncope Endocrine: Reports: As per HPI. Denies: Fatigue, Heat or cold intolerance, Polydipsia, Polyuria Gastrointestinal: Reports: As per HPI. Denies: Abdominal pain, Constipation, Diarrhea, Hematemesis, Hematochezia, Melena, Nausea, Vomiting Genitourinary: Reports: As per HPI. Denies: Dysuria, Frequency, Hematuria, Incontinence, Retention, Testicular pain, Testicular mass, Urgency Musculoskeletal: Reports: As per HPI. Denies: Arthralgia, Back pain, Gout, Joint swelling, Myalgia, Neck pain Skin: Reports: As per HPI. Denies: Bruising, Change in color, Change in hair/nails, Lesions, Pruritus, Rash Neurological: Reports: As per HPI. Denies: Abnormal gait, Confusion, Headache, Numbness, Paresthesias, Seizure, Tingling, Tremors, Vertigo, Weakness Psychiatric: Reports: As per HPI. Denies: Anxiety, Auditory hallucinations, Depression, Homicidal thoughts, Suicidal thoughts, Visual hallucinations Hematological/Lymphatic: Reports: As per HPI. Denies: Anemia, Blood Clots, Easy bleeding, Easy bruising, Swollen glands Past Medical History - SOCIAL HISTORY Smoking Status: Never smoker Alcohol Use: None Drug Use: None - RESPIRATORY Hx Respiratory Disorders: No - CARDIOVASCULAR Hx Cardio Disorders: Yes Hx Cardiac Cath: Yes Hx Hypertension: Yes Comment:: "Leaky Valve" - NEURO Hx Neuro Disorders: No - GI Hx GI Disorders: Yes Hx Reflux: Yes - Hx Genitourinary Disorders: Yes Hx Renal Disease: Yes - ENDOCRINE Hx Endocrine Disorders: Yes Hx Thyroid Disease: Yes - MUSCULOSKELETAL Hx Musculoskeletal Disorders: No - PSYCH Hx Psych Problems: Yes Hx Depression: Yes - HEMATOLOGY/ONCOLOGY Hx Hematology/Oncology Disorders: No Family Medical History Any Significant Family History?: Yes Hx Heart Disease: Father Physical Exam - General General Appearance: Alert, Oriented x3, Cooperative, Mild distress - Head Head exam: Normal inspection - Eye Eye exam: Normal appearance, PERRL, EOMI Pupils: Normal accommodation - ENT ENT exam: Normal exam, Mucous membranes moist, Normal external ear exam, Normal orophraynx Ear exam: Normal external inspection. negative: External canal tenderness Nasal Exam: Normal inspection. negative: Discharge, Sinus tenderness Mouth exam: Normal external inspection, Tongue normal Teeth exam: Normal inspection. negative: Dental caries Throat exam: Normal inspection. negative: Tonsillar erythema, Tonsillar exudate - Neck Neck exam: Normal inspection, Full ROM. negative: Tenderness - Respiratory Respiratory exam: Normal lung sounds bilaterally. negative: Respiratory distre ss - Cardiovascular Cardiovascular Exam: Regular rate, Normal rhythm, Normal heart sounds - GI/Abdominal GI/Abdominal exam: Soft, Normal bowel sounds. negative: Tenderness - Rectal Rectal exam: Deferred - exam: Scrotal swelling, Testicular tenderness, Other (erythema of entire groin) - Extremities Extremities exam: Normal inspection, Full ROM, Normal capillary refill. negative: Tenderness - Back Back exam: Reports: Normal inspection, Full ROM. Denies: Muscle spasm, Rash noted, Tenderness - Neurological Neurological exam: Alert, CN II-XII intact, Normal gait, Oriented X3 - Psychiatric Psychiatric exam: Normal affect, Normal mood - Skin Skin exam: Dry, Intact, Normal color, Warm Course Vital Signs 05/13/19 08:14 Temperature 98.6 F Pulse Rate 102 H Respiratory 22 Rate Blood Pressure 159/85 Pulse Ox 96 - Reevaluation(s) Reevaluation #1: 05/13/19 10:34 ct neg Medical Decision Making - Lab Data Result diagrams: 05/13/19 08:20 05/13/19 08:20 Lab Results 05/13/19 Range/Units 08:20 WBC 6.5 (4.2-12.2) K/uL RBC 3.82 L (4.40-5.70) M/uL Hgb 11.3 L (14.0-18.0) gm/dl Hct 34.0 L (42.0-52.0) % MCV 89.0 (81-97) fl MCH 29.5 (27-33) pg MCHC 33.2 (32-36) g/dl RDW 13.3 (11.5-14.5) % Plt Count 123 L (130-400) K/uL MPV 8.7 (7.4-10.4) fl Lymphocytes % 8.0 L (16-45) % Monocytes % 4.9 (0-9) % Eosinophils % 0.6 (0-6) % Basophils % 0.2 (0-6) % Absolute Neutrophils 5.59 Disposition Disposition: Admit Clinical Impression: Cellulitis of groin Disposition: Still a Patient at [facility] Decision to Admit: Admit from ER Decision to Admit Date: 05/13/19 Decision to Admit Time: 10:41 Forms: Patient Portal Access Quality - Quality Measures Quality Measures: N/A - Blood Pressure Screening Does Patient Have Any of the Following: No Blood Pressure Classification: Pre-Hypertensive BP Reading Systolic Measurement: 159 Diastolic Measurement: 85 Screening for High Blood Pressure: < Pre-Hypertensive BP, F/U Documented > [G8950] Pre-Hypertensive Follow-up Interventions: Follow-up with rescreen every year.
[2019-05-13 09:05] LABS: URINE APPEARANCE CLEAR; URINE BILIRUBIN NEGATIVE (NEGATIVE); URINE BLOOD TRACE-I (NEGATIVE); URINE COLOR YELLOW; URINE GLUCOSE (UA) NEGATIVE (NEGATIVE); URINE KETONE NEGATIVE (NEGATIVE); URINE LEUKOCYTE ESTERASE NEGATIVE (NEGATIVE); URINE NITRITE NEGATIVE (NEGATIVE); URINE UROBILINOGEN 0.2 E.U./dL (0.20 - 1.00)
[2019-05-13 09:05] LABS: PLATELET ESTIMATE NORMAL (NORMAL); TOXIC GRANULATION 1+
[2019-05-13 09:11] LABS: URINE EPITHELIAL CELLS NONE SEEN (FEW); URINE RBC 0 - 2 (NONE SEEN); URINE WBC NONE SEEN (0-2/hpf)
--- NOTE | 2019-05-13 10:11 | CT SCAN REPORT ---
EXAMINATION: CT Abdomen and Pelvis without IV Contrast EXAM DATE: 05/13/2019 9:10 AM TECHNIQUE: Standard protocol CT imaging of the abdomen and pelvis was performed without intravenous c ontrast. INDICATION: ap COMPARISON: None ENCOUNTER: Not applicable CT ABDOMEN AND PELVIS FINDINGS: Lung Bases: Included extent of the lung bases are clear. Coronary artery calcifications Hepatobiliary: The liver has a normal size with a smooth surface. Normal gallbladder Pancreas: The pancreas is normal. Spleen: The spleen is not enlarged. Adrenals: The adrenal glands are normal. Kidneys, Ureters, & Bladder: Both kidneys have a normal size and morphology. There is no hydronephro sis. Both ureters have a normal course and caliber and the urinary bladder a normal morphology and un iform wall thickness. No ureteral or bladder calculi are identified. Gastrointestinal: The stomach and small bowel are normal with no obstruction or inflammation. Appendi x not demonstrated. Scattered colonic diverticula. No diverticulitis. Reproductive Organs: Prostatic enlargement Lymphatic System: There is no adenopathy within the abdomen or pelvis. Vasculature: Normal caliber abdominal aorta Peritoneum: No free air or fluid. Nonspecific mild hazy mesentery Abdominal wall & Musculoskeletal: No suspicious bone lesions. Small umbilical hernia Assessment of the solid organs, soft tissues, and vascular structures is overall limited on noncontra st imaging, IMPRESSION: 1. Nonspecific mild hazy mesentery 2. Mild diverticulosis coli 3. Prostatic enlargement 4. Umbilical hernia 5. Coronary artery disease Dictated by: Ankit Hernandez MD on 05/13/2019 9:50 AM. .
[2019-05-13] MEDS ORDERED: CEFTRIAXONE 1GM/50ML BAG 1 GM/50 ML BAG IVPB ONE (10:33)
[2019-05-13] MEDS ORDERED: ACETAMINOPHEN 500 MG TABLET PO ONE (10:33)
[2019-05-13] MEDS ORDERED: CLINDAMYCIN 600MG/50ML PREMIX 600 MG/50 ML BAG IVPB ONE (10:40)
--- NOTE | 2019-05-13 10:55 | History & Physical ---
History of Present Illness - Date of Service Date of Service for History & Physical: 05/13/19 - History of Present Illness History of Present Illness: Patient presents to ED via EMS for lower abdominal pain. Was given 30mg of toradol and zofran in the ambulance. Patient complaining of nausea and feels similar to what he felt when he was admitted for pylonephritis a month ago. He also has pain and swelling of his scrotum as well with a history of erythema of this area for a long time and was seen at [facility] for it. review of [facility] shows no documentation from [facility]. No urological consultation reports available for review. 05/13/He states pain began abruptly at 3am this morning with onset of vomiting. He also was unable to urinate at that time and still reports it is difficult to urinate. He does have hx prostate enlargement and does have difficulty starting his stream on occasion. ED work up significant for scrotal cellulitis. Admitted for IV antibiotics, pain control, nausea management. PCP Dr. Barbosa. Cardiology Dr Aguero. Nephrologhy Significant findings in ED - Temp 100 - WBC 6.5, bands 9.0 - Hgb 11.3 - Platelet 123 - Potassium 4.6 - AG 19 - BUN/Cr 34/1.6, GFR 4.5 - U/A negative - CT abdomen/pelvis negative for acute process PAST MEDICAL/SURGICAL HISTORY Past Surgical History Cardiac Stent 1998 Appendectomy 1963 PMH - Respiratory Hx Respiratory Disorders No Hx Chronic Obstructive undx'd Pulmonary Disease (COPD) PMH - Cardiovascular Hx Cardiovascular Disorders Yes Hx Cardiac Catheterization Yes Hx Hypertension Yes Comment: "Leaky Valve" PMH - Neuro Hx Neurological Disorders No PMH - GI Hx Gastrointestinal Disorders Yes Hx Gastroesophageal Reflux Yes PMH - Hx Genitourinary Disorders Yes Hx Prostate Problems Yes Hx Renal Disease Yes PMH - Endocrine Hx Endocrine Disorders Yes Hx Thyroid Disease Yes PMH - Musculoskeletal Hx Musculoskeletal Disorders No PMH - Psych Hx Psychiatric Problems Yes Hx Depression Yes PMH - Hematology/Oncology Hx Hematology/Oncology No Disorders Laboratory Results WBC 6.5 K/uL (4.2-12.2) 05/13/19 08:20 RBC 3.82 M/uL (4.40-5.70) L 05/13/19 08:20 Hgb 11.3 gm/dl (14.0-18.0) L 05/13/19 08:20 Hct 34.0 % (42.0-52.0) L 05/13/19 08:20 MCV 89.0 fl (81-97) 05/13/19 08:20 MCH 29.5 pg (27-33) 05/13/19 08:20 MCHC 33.2 g/dl (32-36) 05/13/19 08:20 RDW 13.3 % (11.5-14.5) 05/13/19 08:20 Plt Count 123 K/uL (130-400) L 05/13/19 08:20 MPV 8.7 fl (7.4-10.4) 05/13/19 08:20 Neutrophils % 74.0 % (47-80) 05/13/19 08:20 Band Neutrophils % 9.0 % (0-5) H 05/13/19 08:20 Lymphocytes % 8.0 % (16-45) L 05/13/19 08:20 Monocytes % 4.9 % (0-9) 05/13/19 08:20 Eosinophils % 0.6 % (0-6) 05/13/19 08:20 Basophils % 0.2 % (0-6) 05/13/19 08:20 Absolute Neutrophils 5.59 05/13/19 08:20 Lymphocytes 11.0 % (16-45) L 05/13/19 08:20 Monocytes 5.0 % (0-9) 05/13/19 08:20 Toxic Granulation 1+ 05/13/19 08:20 Platelet Estimate Normal (NORMAL) 05/13/19 08:20 RBC Morphology Normal 05/13/19 08:20 Eosinophil Count 1.0 % (0-6) 05/13/19 08:20 Sodium 138 mmol/L (136-145) 05/13/19 08:20 Potassium 4.6 mmol/L (3.4-4.5) H 05/13/19 08:20 Chloride 102 mmol/L (98-107) 05/13/19 08:20 Carbon Dioxide 17.0 mmol/L (22-29) L 05/13/19 08:20 Anion Gap 19.0 (7-16) H 05/13/19 08:20 BUN 34 mg/dL (8-23) H 05/13/19 08:20 Creatinine 1.6 mg/dL (0.7-1.2) H 05/13/19 08:20 Estimated GFR 45 mL/min 05/13/19 08:20 Random Glucose 147 mg/dL (74-109) H 05/13/19 08:20 Calcium 9.1 mg/dL (8.8-10.2) 05/13/19 08:20 Urine Color Yellow 05/13/19 09:00 Urine Appearance Clear 05/13/19 09:00 Urine pH 6.5 (5.0-8.0) 05/13/19 09:00 Ur Specific [place] 1.015 (1.002-1.030) 05/13/19 09:00 Urine Protein 30 mg/dl (NEGATIVE) H 05/13/19 09:00 Urine Glucose (UA) Negative (NEGATIVE) 05/13/19 09:00 Urine Ketones Negative (NEGATIVE) 05/13/19 09:00 Urine Blood Trace-i (NEGATIVE) 05/13/19 09:00 Urine Nitrite Negative (NEGATIVE) 05/13/19 09:00 Urine Bilirubin Negative (NEGATIVE) 05/13/19 09:00 Urine Urobilinogen 0.2 E.U./dL (0.20 - 1.00) 05/13/19 09:00 Ur Leukocyte Esterase Negative (NEGATIVE) 05/13/19 09:00 Urine RBC 0 - 2 (NONE SEEN) 05/13/19 09:00 Urine WBC None seen (0-2/hpf) 05/13/19 09:00 Ur Epithelial Cells None seen (FEW) 05/13/19 09:00 Vital Signs - Last 24 Hrs Temp Pulse Pulse Resp BP BP Pulse Ox 05/13/19 10:24 100.0 F H 106 H 20 143/90 96 05/13/19 09:06 99.5 F 05/13/19 08:14 98.6 F 102 H 22 159/85 96 05/13/19- Resting in bed, uncomfortable. Reports the amount of redness and swelling to pubic and scrotal area is exacerbated from baseline. He is uncircumcised. States Morphine and Zofran have been effective for symptoms. Still is feeling a strong urge to urinate but unable to do so. Travel Screening - Travel/Exposure Within Last 30 Days Have you traveled within the last 30 days?: No Review of Systems Constitutional: Reports: As per HPI. Denies: Chills, Fever, Malaise, Night sweats, Weakness, Weight change Eyes: Reports: As per HPI. Denies: Eye discharge, Eye pain, Photophobia, Vision change ENT: Reports: As per HPI. Denies: Congestion, Dental pain, Ear pain, Epistaxis, Hearing loss, Throat pain Respiratory: Reports: As per HPI. Denies: Cough, Dyspnea, Hemoptysis, Stridor, Wheezes Cardiovascular: Reports: As per HPI. Denies: Arrhythmia, Chest pain, Dyspnea on exertion, Edema, Murmurs, Orthopnea, Palpitations, Paroxysmal nocturnal dyspnea, Rheumatic Fever, Syncope Endocrine: Reports: As per HPI. Denies: Fatigue, Heat or cold intolerance, Polydipsia, Polyuria Gastrointestinal: Reports: As per HPI. Denies: Abdominal pain, Constipation, D iarrhea, Hematemesis, Hematochezia, Melena, Nausea, Vomiting Genitourinary: Reports: As per HPI. Denies: Dysuria, Frequency, Hematuria, Incontinence, Retention, Testicular pain, Testicular mass, Urgency Musculoskeletal: Reports: As per HPI. Denies: Arthralgia, Back pain, Gout, Joint swelling, Myalgia, Neck pain Skin: Reports: As per HPI. Denies: Bruising, Change in color, Change in hair/nails, Lesions, Pruritus, Rash Neurological: Reports: As per HPI. Denies: Abnormal gait, Confusion, Headache, Numbness, Paresthesias, Seizure, Tingling, Tremors, Vertigo, Weakness Psychiatric: Reports: As per HPI. Denies: Anxiety, Auditory hallucinations, Depression, Homicidal thoughts, Suicidal thoughts, Visual hallucinations Hematological/Lymphatic: Reports: As per HPI. Denies: Anemia, Blood Clots, Easy bleeding, Easy bruising, Swollen glands Past Medical History - SOCIAL HISTORY Smoking Status: Never smoker Alcohol Use: None Drug Use: None - RESPIRATORY Hx Respiratory Disorders: No - CARDIOVASCULAR Hx Cardio Disorders: Yes Hx Cardiac Cath: Yes Hx Hypertension: Yes Comment:: "Leaky Valve" - NEURO Hx Neuro Disorders: No - GI Hx GI Disorders: Yes Hx Reflux: Yes - Hx Genitourinary Disorders: Yes Hx Renal Disease: Yes - ENDOCRINE Hx Endocrine Disorders: Yes Hx Thyroid Disease: Yes - MUSCULOSKELETAL Hx Musculoskeletal Disorders: No - PSYCH Hx Psych Problems: Yes Hx Depression: Yes - HEMATOLOGY/ONCOLOGY Hx Hematology/Oncology Disorders: No Family Medical History Any Significant Family History?: Yes Hx Heart Disease: Father H&P Meds/Allergies - Allergies Allergies: Allergies Allergy/AdvReac Type Severity Reaction Status Date / Time Sulfa (Sulfonamide Allergy pt unsure Verified 05/13/19 08:18 Antibiotics) - Active Medications Active Medications: Current Medications Clindamycin Phosphate (Cleocin 600 [id number]) 600 mg in 50 mls @ 100 mls/hr IVPB NOW ONE Stop: 05/13/19 11:09 Physical Exam - Vital Signs Vital Signs: Vital Signs - Last 24 Hrs Temp Pulse Pulse Resp BP BP Pulse Ox 05/13/19 10:24 100.0 F H 106 H 20 143/90 96 05/13/19 09:06 99.5 F 05/13/19 08:14 98.6 F 102 H 22 159/85 96 - General General Appearance: Alert, Oriented x3, Cooperative, Mild distress Limitations: No limitations - Head Head exam: Normal inspection - Eye Eye exam: Normal appearance, PERRL, EOMI Pupils: Normal accommodation - ENT ENT exam: Normal exam, Mucous membranes moist, Normal external ear exam, Normal orophraynx Ear exam: Normal external inspection. negative: External canal tenderness Nasal Exam: Normal inspection. negative: Discharge, Sinus tenderness Mouth exam: Normal external inspection, Tongue normal Teeth exam: Normal inspection. negative: Dental caries Throat exam: Normal inspection. negative: Tonsillar erythema, Tonsillar exudate - Neck Neck exam: Normal inspection, Full ROM. negative: Tenderness - Respiratory Respiratory exam: Normal lung sounds bilaterally. negative: Respiratory distress - Cardiovascular Cardiovascular Exam: Regular rate, Normal rhythm, Normal heart sounds Peripheral Pulses: 3+: Radial (R), Radial (L) - GI/Abdominal GI/Abdominal exam: Soft, Normal bowel sounds, Tenderness (upper mid abdomen, bladder palpable) - Rectal Rectal exam: Deferred - exam: Scrotal swelling (scrotal tissue is thickened, fissured, scaly consistent with psoriatic scales to bilat legs and elbows), Testicular tenderness, Other (erythema of entire groin) - Extremities Extremities exam: Normal inspection, Full ROM, Normal capillary refill. nega tive: Tenderness - Back Back exam: Reports: Normal inspection, Full ROM. Denies: Muscle spasm, Rash noted, Tenderness - Neurological Neurological exam: Alert, CN II-XII intact, Normal gait, Oriented X3 - Psychiatric Psychiatric exam: Normal affect, Normal mood - Skin Skin exam: Dry, Intact, Normal color, Warm Distribution of rash: Genitals, LUE, LLE Description of rash: Crusting (silvery patches to bilat elbows and BLE) Results - Labs Result Diagrams: 05/13/19 08:20 05/13/19 08:20 Labs Last 24 Hours: Laboratory Results - last 24 hr 05/13/19 05/13/19 05/13/19 08:20 08:20 09:00 WBC 6.5 RBC 3.82 L Hgb 11.3 L Hct 34.0 L MCV 89.0 MCH 29.5 MCHC 33.2 RDW 13.3 Plt Count 123 L MPV 8.7 Neutrophils % 74.0 Band Neutrophils % 9.0 H Lymphocytes % 8.0 L Monocytes % 4.9 Eosinophils % 0.6 Basophils % 0.2 Absolute Neutrophils 5.59 Lymphocytes 11.0 L Monocytes 5.0 Toxic Granulation 1+ Platelet Estimate Normal RBC Morphology Normal Eosinophil Count 1.0 Sodium 138 Potassium 4.6 H Chloride 102 Carbon Dioxide 17.0 L Anion Gap 19.0 H BUN 34 H Creatinine 1.6 H Estimated GFR 45 Random Glucose 147 H Calcium 9.1 Urine Color Yellow Urine Appearance Clear Urine pH 6.5 Ur Specific [place] 1.015 Urine Protein 30 mg/dl H Urine Glucose (UA) Negative Urine Ketones Negative Urine Blood Trace-i Urine Nitrite Negative Urine Bilirubin Negative Urine Urobilinogen 0.2 Ur Leukocyte Esterase Negative Urine RBC 0 - 2 Urine WBC None seen Ur Epithelial Cells None seen - Imaging and Cardiology CT scan - abdomen Status: Report reviewed VTE H&P Assessment - Risk for VTE Risk for VTE: Yes Risk Level: Moderate Risk Assessment Date: 05/13/19 Risk Assessment Time: 12:34 VTE Orders Placed or Will Be Placed: Yes Plan - Inpatient Certification Inpatient Certification: Admit to inpatient care: Based on my medical assessment, after consideration of patient's risk factors (age, co-morbidities and patient presenting symptoms and acuity), I expect that this patient will remain in the hospital greater than or equal to two midnights and that the services needed warrant inpatient care because: Patient Risk Factors: [advanced age, urinary retention, scrotal infection] Estimated length of stay: [48-72 hours] The patient may reasonably be expected to be discharged or transferred to a hospital within 96 hours after admission to [facility]. Services needed: [bladder scan and straight cath as needed, pain control, nursing] Post hospital care (if known): [] I certify that my determination is in accordance with my understanding of Medicare requirements for reasonable and necessary inpatient services. 05/13/19 12:39 - Detailed Diagnosis and Plan (1) Cellulitis of groin Current Visit: Yes Status: Acute Base Code: L03.314 - CELLULITIS OF GROIN Comment: 05/13/19 - Tmax in ED 100 - WBC normal, bands 9.0. plt 123, AG 19 - U/A negative for infection - CT abdomen/pelvis negative for acute process - Patient reports [facility] and [facility], reports unable to determine cause. [facility] and [facility] records reviewed, no urological or [facility] records available for review - Question if psoriasis is etiology. Recommend dermatology follow up as outpatient (2) CKD (chronic kidney disease) Current Visit: Yes Status: Acute Base Code: N18.9 - CHRONIC KIDNEY DISEASE, UNSPECIFIED Comment: 05/13/19 -Cr 1.6 -GFR 45 - Potassium 4.6 -At baseline -Patient follows with [facility] annually (3) HTN (hypertension) Current Visit: No Status: Acute Base Code: I10 - ESSENTIAL (PRIMARY) HYPERTENSION Comment: 05/13/19 -Continue Coreg -Continue HCTZ -Continue Amlodipine - Continue ASA - Continue Losartan (4) Urinary retention Current Visit: Yes Status: Acute Base Code: R33.9 - RETENTION OF URINE, UNSPECIFIED Comment: 05/13/19 - Bladder scan- 455ml retained - Bladder scan q4hr PRN and straight cath for volume over 200ml - May need urology consult if he continued to retain after scrotal infection and inflammation improve (5) DVT prophylaxis Current Visit: No Status: Acute Base Code: Z29.9 - ENCOUNTER FOR PROPHYLACTIC MEASURES, UNSPECIFIED Comment: 05/13/19 -Patient ambulating in room without assist -Anticipated D/C within 24 hours (6) Full code status Current Visit: Yes Status: Acute Base Code: Z78.9 - OTHER SPECIFIED HEALTH STATUS
[2019-05-13] MEDS ORDERED: ALBUTEROL HFA 8 GM INHALER INH SCH (11:13)
[2019-05-13] MEDS ORDERED: MORPHINE SULFATE 5 MG/ML VIAL IVP PRN ×2 (11:13→19:40)
[2019-05-13] MEDS ORDERED: ACETAMINOPHEN 500 MG TABLET PO PRN (11:13)
[2019-05-13] MEDS ORDERED: ONDANSETRON HCL IV 4 MG/2 ML VIAL IVP PRN (11:13)
[2019-05-13] MEDS ORDERED: ALBUTEROL HFA 8 GM INHALER INH PRN (12:50)
[2019-05-13] MEDS: ALFUZOSIN HCL 10 MG PO SCH (14:39)
[2019-05-13] MEDS: AMLODIPINE BESYLATE 5MG TAB PO SCH (14:44)
[2019-05-13] MEDS: LEVOTHYROXINE SODIUM 25 MCG TABLET PO SCH (14:44)
[2019-05-13] MEDS: ASPIRIN 325 MG TABLET PO SCH (14:44)
[2019-05-13] MEDS: ATORVASTATIN 20 MG TABLET PO SCH (14:45)
[2019-05-13] MEDS: CARVEDILOL 12.5 MG TABLET PO SCH ×2 (14:45→21:18)
[2019-05-13] MEDS: LOSARTAN POTASSIUM 25 MG TABLET PO SCH (14:45)
[2019-05-13] MEDS: HYDROCHLOROTHIAZIDE 12.5 MG CAPSULE PO SCH (14:46)
[2019-05-13] MEDS: FLUOXETINE HCL 20 MG CAPSULE PO SCH (14:46)
[2019-05-13] MEDS: PANTOPRAZOLE SODIUM 40 MG TABLET PO SCH (14:46)
[2019-05-13] MEDS: IPRATROPIUM BR 0.02% NEB (0.5MG) INH SCH (16:15)
[2019-05-13] MEDS: GABAPENTIN 300 MG CAPSULE PO SCH ×2 (16:49→21:18)
[2019-05-13] MEDS: CLINDAMYCIN 600MG/50ML PREMIX 600 MG/50 ML BAG IVPB SCH (20:01)
[2019-05-13] MEDS: OXYCODONE/APAP 7.5MG/325MG TABLET PO PRN (21:18)
[2019-05-13] MEDS: ALBUTEROL HFA 8 GM INHALER INH SCH (22:38)
[2019-05-14] MEDS: OXYCODONE/APAP 7.5MG/325MG TABLET PO PRN ×3 (02:23→17:31)
[2019-05-14] MEDS: CLINDAMYCIN 600MG/50ML PREMIX 600 MG/50 ML BAG IVPB SCH ×3 (03:30→20:03)
[2019-05-14 06:34] LABS: BASO % 0.1 % (0-6); EOS % 0.4 % (0-6); HEMATOCRIT 32.5 % (42.0-52.0); HEMOGLOBIN 10.6 gm/dl (14.0-18.0); LYMPH % 6.8 % (16-45); MEAN CELL VOLUME 90.8 fl (81-97); MEAN CORPUSCULAR HEMOGLOBIN 29.6 pg (27-33); MEAN CORPUSCULAR HGB CONC 32.6 g/dl (32-36); MEAN PLATELET VOLUME 8.6 fl (7.4-10.4); MONO % 4.7 % (0-9); PLATELET COUNT 125 K/uL (130-400); RED BLOOD COUNT 3.58 M/uL (4.40-5.70); RED CELL DISTRIBUTION WIDTH 14.3 % (11.5-14.5); WHITE BLOOD COUNT W/O DIFF 9.6 K/uL (4.2-12.2)
[2019-05-14 06:53] LABS: ALB/GLOB RATIO 1.4 (1.1-1.8); ALBUMIN 3.6 g/dL (4.0-5.0); BILIRUBIN,TOTAL 0.5 mg/dL (0.2-1.0); CREATININE 2.3 mg/dL (0.7-1.2); TOTAL PROTEIN 6.2 g/dL (6.6-8.7)
[2019-05-14] MEDS: LEVOTHYROXINE SODIUM 25 MCG TABLET PO SCH (07:55)
[2019-05-14] MEDS: PANTOPRAZOLE SODIUM 40 MG TABLET PO SCH (07:55)
[2019-05-14] MEDS: ASPIRIN 325 MG TABLET PO SCH (10:24)
[2019-05-14] MEDS: LOSARTAN POTASSIUM 25 MG TABLET PO SCH (10:24)
[2019-05-14] MEDS: HYDROCHLOROTHIAZIDE 12.5 MG CAPSULE PO SCH (10:25)
[2019-05-14] MEDS: ATORVASTATIN 20 MG TABLET PO SCH (10:25)
[2019-05-14] MEDS: FLUOXETINE HCL 20 MG CAPSULE PO SCH (10:25)
[2019-05-14] MEDS: GABAPENTIN 300 MG CAPSULE PO SCH ×3 (10:26→21:33)
[2019-05-14] MEDS: CARVEDILOL 12.5 MG TABLET PO SCH ×2 (10:26→21:33)
[2019-05-14] MEDS: AMLODIPINE BESYLATE 5MG TAB PO SCH (10:26)
[2019-05-14] MEDS: ALFUZOSIN HCL 10 MG PO SCH (10:26)
[2019-05-14] MEDS: ALBUTEROL HFA 8 GM INHALER INH SCH ×2 (10:40→21:35)
[2019-05-14] MEDS: CEFTRIAXONE 1GM/50ML BAG 1 GM/50 ML BAG IVPB SCH ×2 (10:55→21:39)
[2019-05-14] MEDS: IPRATROPIUM BR 0.02% NEB (0.5MG) INH SCH (16:06)
--- NOTE | 2019-05-14 16:58 | ULTRASOUND REPORT ---
EXAMINATION: Ultrasound of the Scrotum EXAM DATE: 05/14/2019 4:22 PM TECHNIQUE: Ultrasound of the scrotum and contents INDICATION: scrotal edema and urinary retention COMPARISON: None FINDINGS: Testicles: The right testicle measures 3.8 x 2.8 x 2.8 cm in dimension. The left testicle measures 3.6 x 2.7 x 2.4 cm in dimension. The testicles have a normal homogeneous echogenicity. No mass is present. Epididymides: The epididymides are normal. The right epididymis measures 3.8 x 1 x 1.3 cm. The left e pididymis measures 2.6 x 1 x 1 1.1 cm. Scrotum: No varicocele. Small right hydrocele.. COMPLETE DUPLEX DOPPLER OF THE TESTICLES: Duplex Doppler was performed to assess for testicular torsi on and epididymitis. Color flow imaging shows symmetric blood flow in the testicles and epididymide s. The intratesticular arterial and venous spectral waveforms of the testicles are normal. Additional findings: There is marked thickening of the scrotal skin. On the right this measures up to 3.2 cm and on the left this measures 3.6 cm. There is marked edema. There is no focal abscess. IMPRESSION: Marked scrotal skin thickening with diffuse edema. Normal appearance of the testicles and epididymides bilaterally. Small right hydrocele. Dictated by: Eloisa Wiley MD on 05/14/2019 4:49 PM. .
[2019-05-15] MEDS: CLINDAMYCIN 600MG/50ML PREMIX 600 MG/50 ML BAG IVPB SCH ×2 (05:30→11:11)
[2019-05-15] MEDS: PANTOPRAZOLE SODIUM 40 MG TABLET PO SCH (06:08)
[2019-05-15] MEDS: LEVOTHYROXINE SODIUM 25 MCG TABLET PO SCH (06:08)
[2019-05-15] MEDS: ALBUTEROL HFA 8 GM INHALER INH SCH (09:54)
[2019-05-15] MEDS: CEFTRIAXONE 1GM/50ML BAG 1 GM/50 ML BAG IVPB SCH (10:16)
[2019-05-15] MEDS: HYDROCHLOROTHIAZIDE 12.5 MG CAPSULE PO SCH (10:17)
[2019-05-15] MEDS: ASPIRIN 325 MG TABLET PO SCH (10:17)
[2019-05-15] MEDS: GABAPENTIN 300 MG CAPSULE PO SCH ×3 (10:17→21:23)
[2019-05-15] MEDS: AMLODIPINE BESYLATE 5MG TAB PO SCH (10:17)
[2019-05-15] MEDS: FLUOXETINE HCL 20 MG CAPSULE PO SCH (10:17)
[2019-05-15] MEDS: ATORVASTATIN 20 MG TABLET PO SCH (10:17)
[2019-05-15] MEDS: LOSARTAN POTASSIUM 25 MG TABLET PO SCH (10:17)
[2019-05-15] MEDS: OXYCODONE/APAP 7.5MG/325MG TABLET PO PRN ×2 (10:18→19:34)
[2019-05-15] MEDS: CARVEDILOL 12.5 MG TABLET PO SCH ×2 (10:18→21:23)
[2019-05-15] MEDS: ALFUZOSIN HCL 10 MG PO SCH (10:19)
[2019-05-15] MEDS ORDERED: CEFEPIME HCL 2 GM in 0.9 % SODIUM CHLORIDE 100ML 100 ML IVPB ONE (12:09)
--- NOTE | 2019-05-15 12:20 | Physician Progress Note ---
Subjective - Date Date of Progress Note: 05/15/19 - Admitting Diagnosis Diagnosis: scrotal cellulitis - Subjective Nursing Care Plan Problem List Activity Intolerance Start: 05/13/19 11:58 Freq: Status: Active Protocol: Created 05/13/19 11:58 SAF (Rec: 05/13/19 11:58 SAF [email or web address]-1) Altered Thought Process (Fall Risk) Start: 05/13/19 12:11 Freq: Status: Complete Protocol: Created 05/13/19 12:11 SAF (Rec: 05/13/19 12:11 SAF ASTS-1) Edit Status 05/14/19 12:59 SAF (Rec: 05/14/19 12:59 SAF ASTS-1) Active=>Complete Impaired Mobility (Fall Risk) Start: 05/13/19 12:11 Freq: Status: Active Protocol: Created 05/13/19 12:11 SAF (Rec: 05/13/19 12:11 SAF ASTS-1) Knowledge Deficit Start: 05/13/19 11:58 Freq: Status: Active Protocol: Created 05/13/19 11:58 SAF (Rec: 05/13/19 11:58 SAF ASTS-1) Pain Start: 05/13/19 11:58 Freq: Status: Active Protocol: Created 05/13/19 11:58 SAF (Rec: 05/13/19 11:58 SAF ASTS-1) Risk for Injury (Fall Risk) Start: 05/13/19 12:11 Freq: Status: Active Protocol: Created 05/13/19 12:11 SAF (Rec: 05/13/19 12:11 SAF ASTS-1) Subjective: slightly less red but not much improvement. Entire scrotum involved and some white folicular spot on hairfolicles of scrotum. US reviewed and no abscess with thickened skin of scrotum renal status worsening yesterday and creat 2.3 , BUN 35 K4.3 General - Continence Bowel Pattern: Normal for Patient Bladder Pattern: Urgency Meds/Allergies - Allergies Allergies Allergy/AdvReac Type Severity Reaction Status Date / Time Sulfa (Sulfonamide Allergy pt unsure Verified 05/13/19 08:18 Antibiotics) - Active Medications Current Medications Acetaminophen (Tylenol 500mg Tab) 1,000 mg PO Q6H PRN PRN Reason: PAIN - MILD(1-4)/FEVER Last Admin: 05/14/19 02:25 Dose: 1,000 mg Documented by: Albuterol Sulfate (Ventolin Hfa) 2 puff INH RESP.Q4H PRN PRN Reason: WHEEZING Albuterol Sulfate (Ventolin Hfa) 2 puff INH BID [facility] Last Admin: 05/15/19 09:54 Dose: 2 puff Documented by: Amlodipine Besylate (Norvasc) 10 mg PO DAILY [facility] Last Admin: 05/15/19 10:17 Dose: 10 mg Documented by: Aspirin (Aspirin, Regular) 325 mg PO DAILY [facility] Last Admin: 05/15/19 10:17 Dose: 325 mg Documented by: Atorvastatin Calcium (Lipitor) 40 mg PO DAILY [facility] Last Admin: 05/15/19 10:17 Dose: 40 mg Documented by: Carvedilol (Coreg) 12.5 mg PO BID [facility] Last Admin: 05/15/19 10:18 Dose: 12.5 mg Documented by: Fluoxetine HCl (Prozac) 40 mg PO DAILY [facility] Last Admin: 05/15/19 10:17 Dose: 40 mg Documented by: Gabapentin (Neurontin) 300 mg PO TID [facility] Last Admin: 05/15/19 10:17 Dose: 300 mg Documented by: Hydrochlorothiazide (Hctz 12.5mg) 12.5 mg PO DAILY [facility] Last Admin: 05/15/19 10:17 Dose: 12.5 mg Documented by: CEFEPIME HCL 2 gm/ Sodium (Chloride) 100 mls @ 200 mls/hr IVPB NOW ONE Stop: 05/15/19 12:38 CEFEPIME HCL 1 gm/ Sodium (Chloride) 100 mls @ 200 mls/hr IVPB Q12H [facility] Linezolid (Zyvox) 600 mg in 300 mls @ 300 mls/hr IVPB Q12H [facility] Ipratropium Center (Atrovent 0.02% Neb) 2.5 ml INH 1600 [facility] Last Admin: 05/14/19 16:06 Dose: 2.5 ml Documented by: Levothyroxine Sodium (Synthroid) 25 mcg PO DAILYTHY [facility] Last Admin: 05/15/19 06:08 Dose: 25 mcg Documented by: Losartan Potassium (Cozaar) 50 mg PO DAILY [facility] Last Admin: 05/15/19 10:17 Dose: 50 mg Documented by: Morphine Sulfate (Morphine Sulfate) 1 mg IVP Q2H PRN PRN Reason: PAIN - MOD TO SEVERE (5-10) Stop: 05/20/19 19:41 Last Admin: 05/13/19 20:01 Dose: 1 mg Documented by: Non-Formulary Medication (Alfuzosin Hcl [Alfuzosin Hcl Er]) 10 mg PO DAILY [facility] Last Admin: 05/15/19 10:19 Dose: 10 mg Documented by: Ondansetron HCl (Zofran) 4 mg IVP Q8H PRN PRN Reason: NAUSEA Oxycodone/Acetaminophen (Percocet 7.5-325 Mg Tablet) 1 each PO Q4H PRN PRN Reason: PAIN - MOD TO SEVERE (5-10) Stop: 05/20/19 19:35 Last Admin: 05/15/19 10:18 Dose: 1 each Documented by: [facility] Admin: 05/15/19 06:08 Dose: 40 mg Documented by: Objective - Vital Signs Vital Signs: Vital Signs - Last 24 Hrs Temp Pulse Pulse Resp BP Pulse Ox 05/15/19 09:50 93 H 20 95 05/15/19 05:02 99.0 F 94 H 16 131/66 92 L 05/14/19 22:00 99.1 F 88 16 118/64 92 L 05/14/19 21:35 89 20 92 L 05/14/19 21:00 16 05/14/19 17:28 99.5 F 90 16 105/61 96 05/14/19 16:06 87 18 99 05/14/19 13:24 98.7 F 82 20 103/52 98 - General General Appearance: Alert, Oriented x3, Cooperative, Mild distress Limitations: No limitations - Head Head exam: Normal inspection - Eye Eye exam: Normal appearance, PERRL, EOMI Pupils: Normal accommodation - ENT ENT exam: Normal exam, Mucous membranes moist, Normal external ear exam, Normal orophraynx Ear exam: Normal external inspection. negative: External canal tenderness Nasal Exam: Normal inspection. negative: Discharge, Sinus tenderness Mouth exam: Normal external inspection, Tongue normal Teeth exam: Normal inspection. negative: Dental caries Throat exam: Normal inspection. negative: Tonsillar erythema, Tonsillar exudate - Neck Neck exam: Normal inspection, Full ROM. negative: Tenderness - Respiratory Respiratory exam: Normal lung sounds bilaterally. negative: Respiratory distress - Cardiovascular Cardiovascular Exam: Regular rate, Normal rhythm, Normal heart sounds Peripheral Pulses: 3+: Radial (R), Radial (L) - GI/Abdominal GI/Abdominal exam: Soft, Normal bowel sounds, Tenderness (upper mid abdomen, bladder palpable) - Rectal Rectal exam: Deferred - exam: Scrotal swelling (scrotal tissue is thickened, fissured, scaly consistent with psoriatic scales to bilat legs and elbows), Testicular tenderness, Other (erythema of entire groin) - Extremities Extremities exam: Normal inspection, Full ROM, Normal capillary refill. negative: Tenderness - Back Back exam: Reports: Normal inspection, Full ROM. Denies: Muscle spasm, Rash noted, Tenderness - Neurological Neurological exam: Alert, CN II-XII intact, Normal gait, Oriented X3 - Psychiatric Psychiatric exam: Normal affect, Normal mood - Skin Skin exam: Rash, Other (red cellulitic skin scrotum and suprapubic area with white folicles pustules) Distribution of rash: Genitals, LUE, LLE Description of rash: Crusting (silvery patches to bilat elbows and BLE) H&P Results - Labs Result Diagrams: 05/14/19 06:25 05/14/19 06:25 Plan - Swing Bed Certification Initial Certification Due: 05/13/19 14 Day Re-Cert Due: 05/27/19 44 Day Re-Cert Due: 06/26/19 74 Day Re-Cert Due: 07/26/19 - Detailed Diagnosis and Plan (1) Renal failure (ARF), acute on chronic Current Visit: Yes Status: Acute Base Code: N17.9 - ACUTE KIDNEY FAILURE, UNSPECIFIED; N18.9 - CHRONIC KIDNEY DISEASE, UNSPECIFIED (2) Cellulitis of groin Current Visit: Yes Status: Acute Base Code: L03.314 - CELLULITIS OF GROIN Comment: 05/13/19 - Tmax in ED 100 - WBC normal, bands 9.0. plt 123, AG 19 - U/A negative for infection - CT abdomen/pelvis negative for acute process - Patient reports [facility] and infections, reports unable to determine cause. [facility] and [facility] records reviewed, no urological or [facility] records available for review - Question if psoriasis is etiology. Recommend dermatology follow up as outpatient (3) Urinary retention Current Visit: Yes Status: Acute Base Code: R33.9 - RETENTION OF URINE, UNSPECIFIED Comment: 05/13/19 - Bladder scan- 455ml retained - Bladder scan q4hr PRN and straight cath for volume over 200ml - May need urology consult if he continued to retain after scrotal infection and inflammation improve (4) HTN (hypertension) Current Visit: No Status: Acute Base Code: I10 - ESSENTIAL (PRIMARY) HYPERTENSION Comment: 05/13/19 -Continue Coreg -Continue HCTZ -Continue Amlodipine - Continue ASA - Continue Losartan stop HCTZ because of renal failure and will add back fluids cautiously (5) Dehydration Current Visit: Yes Status: Acute Base Code: E86.0 - DEHYDRATION Priority: Medium Comment: cautios hydration of NS at 50 ml per hour
[2019-05-15] MEDS ORDERED: ZYVOX (LINEZOLID) 600MG/300 ML 600 MG/300 ML BAG IVPB SCH (13:00)
[2019-05-15] MEDS: ENOXAPARIN 30 MG/0.3 ML SYR SQ SCH (13:11)
[2019-05-15] MEDS: 0.9 % SODIUM CHLORIDE 1000ML 1,000 ML IV SCH (13:12)
[2019-05-15 14:42] LABS: CREATININE 2.6 mg/dL (0.7-1.2)
[2019-05-15] MEDS: IPRATROPIUM BR 0.02% NEB (0.5MG) INH SCH (16:15)
[2019-05-15] MEDS: CEFEPIME HCL IVPB SCH (21:29)
[2019-05-15] MEDS: SODIUM CHLORIDE 0.9% IVPB SCH (21:29)
[2019-05-15] MEDS ORDERED: CEFEPIME HCL IVPB SCH (23:00)
[2019-05-15] MEDS ORDERED: SODIUM CHLORIDE 0.9% IVPB SCH (23:00)
[2019-05-16] MEDS: OXYCODONE/APAP 7.5MG/325MG TABLET PO PRN ×3 (02:09→21:03)
[2019-05-16] MEDS: ZYVOX (LINEZOLID) 600MG/300 ML 600 MG/300 ML BAG IVPB SCH ×2 (05:15→19:04)
[2019-05-16] MEDS: PANTOPRAZOLE SODIUM 40 MG TABLET PO SCH (06:01)
[2019-05-16] MEDS: LEVOTHYROXINE SODIUM 25 MCG TABLET PO SCH (06:01)
[2019-05-16 08:32] LABS: INFLUENZA A NEGATIVE (NEGATIVE); INFLUENZA B NEGATIVE (NEGATIVE)
[2019-05-16] MEDS: ALBUTEROL HFA 8 GM INHALER INH SCH (10:05)
[2019-05-16] MEDS: CEFEPIME HCL IVPB SCH ×2 (10:34→21:58)
[2019-05-16] MEDS: SODIUM CHLORIDE 0.9% IVPB SCH ×2 (10:34→21:58)
[2019-05-16] MEDS: GABAPENTIN 300 MG CAPSULE PO SCH ×3 (10:35→21:58)
[2019-05-16] MEDS: AMLODIPINE BESYLATE 5MG TAB PO SCH (10:36)
[2019-05-16] MEDS: ASPIRIN 325 MG TABLET PO SCH (10:36)
[2019-05-16] MEDS: FLUOXETINE HCL 20 MG CAPSULE PO SCH (10:36)
[2019-05-16] MEDS: ENOXAPARIN 30 MG/0.3 ML SYR SQ SCH (10:37)
[2019-05-16] MEDS: CARVEDILOL 12.5 MG TABLET PO SCH ×2 (10:37→21:58)
[2019-05-16] MEDS: LOSARTAN POTASSIUM 25 MG TABLET PO SCH (10:37)
[2019-05-16] MEDS: ATORVASTATIN 20 MG TABLET PO SCH (10:37)
[2019-05-16] MEDS: ALFUZOSIN HCL 10 MG PO SCH (10:47)
[2019-05-16] MEDS: IPRATROPIUM/ALBUTEROL (0.5MG/3MG) NEB INH SCH ×2 (17:05→22:12)
[2019-05-16] MEDS: 0.9 % SODIUM CHLORIDE 1000ML 1,000 ML IV SCH (22:11)
[2019-05-17] MEDS: OXYCODONE/APAP 7.5MG/325MG TABLET PO PRN ×2 (04:11→10:45)
[2019-05-17] MEDS: ZYVOX (LINEZOLID) 600MG/300 ML 600 MG/300 ML BAG IVPB SCH (06:40)
[2019-05-17] MEDS: LEVOTHYROXINE SODIUM 25 MCG TABLET PO SCH (06:46)
[2019-05-17] MEDS: PANTOPRAZOLE SODIUM 40 MG TABLET PO SCH (06:46)
[2019-05-17 06:54] LABS: CREATININE 2.1 mg/dL (0.7-1.2)
[2019-05-17] MEDS: IPRATROPIUM BR 0.02% NEB (0.5MG) INH SCH (07:16)
[2019-05-17] MEDS: ALBUTEROL HFA 8 GM INHALER INH SCH (07:18)
[2019-05-17] MEDS: IPRATROPIUM/ALBUTEROL (0.5MG/3MG) NEB INH SCH ×2 (07:47→09:28)
[2019-05-17] MEDS: ENOXAPARIN 30 MG/0.3 ML SYR SQ SCH (10:44)
[2019-05-17] MEDS: AMLODIPINE BESYLATE 5MG TAB PO SCH (10:44)
[2019-05-17] MEDS: FLUOXETINE HCL 20 MG CAPSULE PO SCH (10:44)
[2019-05-17] MEDS: CEFEPIME HCL IVPB SCH (10:44)
[2019-05-17] MEDS: ATORVASTATIN 20 MG TABLET PO SCH (10:44)
[2019-05-17] MEDS: SODIUM CHLORIDE 0.9% IVPB SCH (10:44)
[2019-05-17] MEDS: CARVEDILOL 12.5 MG TABLET PO SCH (10:45)
[2019-05-17] MEDS: ALFUZOSIN HCL 10 MG PO SCH (10:45)
[2019-05-17] MEDS: ASPIRIN 325 MG TABLET PO SCH (10:45)
[2019-05-17] MEDS: GABAPENTIN 300 MG CAPSULE PO SCH (10:45)
[2019-05-17] MEDS: LOSARTAN POTASSIUM 25 MG TABLET PO SCH (10:45)
--- NOTE | 2019-05-17 11:10 | Discharge Summary ---
Providers Discharge Summary Date: 05/17/19 Date of admission: 05/13/19 11:24 Expected Date of Discharge: 05/17/19 Attending physician: MONCHO BARBOSA Primary care physician: MONCHO BARBOSA Consults: Consult Orders 05/13/19 14:45 Consult NOW Consulting Provider: Fish Escalante Physician Instructions: Reason For Exam: scrotal cellulitis, urinary retention Physical Exam - Vital Signs Vital Signs: Vital Signs - Last 24 Hrs Temp Pulse Pulse Resp BP BP Pulse Ox 05/17/19 10:30 98.7 F 76 16 122/74 95 05/17/19 09:28 76 18 99 05/17/19 06:38 98.0 F 74 16 132/71 97 05/17/19 03:06 98.0 F 73 16 137/69 92 L 05/16/19 22:14 73 16 92 L 05/16/19 21:54 98.7 F 72 16 116/62 96 05/16/19 21:00 16 05/16/19 17:06 68 18 99 05/16/19 15:55 98.1 F 68 16 107/64 95 05/16/19 12:00 97.9 F 78 16 123/68 95 - General General Appearance: Alert, Oriented x3, Cooperative, No acute distress Limitations: No limitations - Head Head exam: Normal inspection - Eye Eye exam: Normal appearance, PERRL, EOMI Pupils: Normal accommodation - ENT ENT exam: Normal exam, Mucous membranes moist, Normal external ear exam, Normal orophraynx Ear exam: Normal external inspection. negative: External canal tenderness Nasal Exam: Normal inspection. negative: Discharge, Sinus tenderness Mouth exam: Normal external inspection, Tongue normal Teeth exam: Normal inspection. negative: Dental caries Throat exam: Normal inspection. negative: Tonsillar erythema, Tonsillar exudate - Neck Neck exam: Normal inspection, Full ROM. negative: Tenderness - Respiratory Respiratory exam: Normal lung sounds bilaterally, Other (chronic cough). neg ative: Respiratory distress - Cardiovascular Cardiovascular Exam: Regular rate, Normal rhythm, Normal heart sounds Peripheral Pulses: 3+: Radial (R), Radial (L) - GI/Abdominal GI/Abdominal exam: Soft, Normal bowel sounds, Tenderness (upper mid abdomen, bladder palpable) - Rectal Rectal exam: Deferred - exam: Scrotal swelling (scrotal tissue is thickened, fissured, scaly consistent with psoriatic scales to bilat legs and elbows), Testicular tenderness, Other (erythema of entire groin, and oozing of skin) - Extremities Extremities exam: Normal inspection, Full ROM, Normal capillary refill. negative: Tenderness - Back Back exam: Reports: Normal inspection, Full ROM. Denies: Muscle spasm, Rash noted, Tenderness - Neurological Neurological exam: Alert, CN II-XII intact, Normal gait, Oriented X3 - Psychiatric Psychiatric exam: Normal affect, Normal mood - Skin Skin exam: Rash, Other (red cellulitic skin scrotum and suprapubic area with white folicles pustules) Distribution of rash: Genitals, LUE, LLE Description of rash: Crusting (silvery patches to bilat elbows and BLE) Hospitalization - Hospitalization Admission Diagnosis: scrotal cellulitis - Problem List/Discharge Diagnosis (1) Renal failure (ARF), acute on chronic Current Visit: Yes Status: Acute Base Code: N17.9 - ACUTE KIDNEY FAILURE, UNSPECIFIED; N18.9 - CHRONIC KIDNEY DISEASE, UNSPECIFIED Diagnosis Priority: Primary Comment: on the day of discharge his creat started to go down and it is 2.1 (2) Cellulitis of groin Current Visit: Yes Status: Acute Base Code: L03.314 - CELLULITIS OF GROIN Diagnosis Priority: Primary Comment: 05/13/19 - Tmax in ED 100 - WBC normal, bands 9.0. plt 123, AG 19 - U/A negative for infection - CT abdomen/pelvis negative for acute process - Patient reports has been consulted at [facility] for chronic scrotal swelling and infections, reports unable to determine cause. [facility] and [facility] records reviewed, no urological or [facility] records available for review - Question if psoriasis is etiology. Recommend dermatology follow up as outpatient 05/17/2019 the redness and swelling are improving but his scrotum is still 3-4 times the size it should be. patien is responding to the second set of IV antibiotics(cefipime and linizopid and failed clindamycin and rocephin). patient will be discharged on cefdinir 300 mg BID for 14 days and zyvox 600 mg BID for 14 days (3) Urinary retention Current Visit: Yes Status: Acute Base Code: R33.9 - RETENTION OF URINE, UNSPECIFIED Diagnosis Priority: Primary Comment: 05/13/19 - Bladder scan- 455ml retained - Bladder scan q4hr PRN and straight cath for volume over 200ml - May need urology consult if he continued to retain after scrotal infection and inflammation improve 05/17/2019 patient is retaining urine of 190 ml after urination and discussed case with Urology Dr. Ingram and he is going to follow up with Dr Debra Zapata after the cellulitis is cleared up for his BPH and he is to continue his alfuzosin (4) Dehydration Current Visit: Yes Status: Acute Base Code: E86.0 - DEHYDRATION Diagnosis Priority: Secondary Comment: cautios hydration of NS at 50 ml per hour (5) HTN (hypertension) Current Visit: No Status: Acute Base Code: I10 - ESSENTIAL (PRIMARY) HYPERTENSION Diagnosis Priority: Secondary Comment: 05/13/19 -Continue Coreg -Continue HCTZ -Continue Amlodipine - Continue ASA - Continue Losartan stop HCTZ because of renal failure and will add back fluids cautiously - Hospitalization Course Hospital Course: patient gradully improve but his scrotum is still 3-4 times the correct size and still red and oozing serosanginous fluid. Patient faillinitial antibiotics of clindamycin and rocephin and went into renal failure and HCTZ stopped and he was given fluids cautiosly. His creat went up to 2.6 and the day of discharge he dropped back to 2.1. his baseline is 1.6. the erythema and edema is starting to go down and he is moving aroung the room much better. Will discharg on omnicef 300 mg bid and zyvox 600 mg bid and stop his HCTZ because of his renal wailure and will need to watch his weight. discharge weight is 168 pounds Procedures: Imaging and X-Rays 05/13/19 08:27 ABDOMEN/PELVIS WO CONTRAST [CT] Stat 05/14/19 14:08 SCROTUM [US] Urgent Abnormal Labs: Abnormal Lab Results 05/13/19 05/13/19 05/13/19 Range/Units 08:20 08:20 09:00 RBC 3.82 L (4.40-5.70) M/uL Hgb 11.3 L (14.0-18.0) gm/dl Hct 34.0 L (42.0-52.0) % Plt Count 123 L (130-400) K/uL Neutrophils % (47-80) % Band Neutrophils % 9.0 H (0-5) % Lymphocytes % 8.0 L (16-45) % Lymphocytes 11.0 L (16-45) % Sodium (136-145) mmol/L Potassium 4.6 H (3.4-4.5) mmol/L Chloride (98-107) mmol/L Carbon Dioxide 17.0 L (22-29) mmol/L Anion Gap 19.0 H (7-16) BUN 34 H (8-23) mg/dL Creatinine 1.6 H (0.7-1.2) mg/dL Random Glucose 147 H (74-109) mg/dL Calcium (8.8-10.2) mg/dL Alkaline Phosphatase (40-129) U/L Total Protein (6.6-8.7) g/dL Albumin (4.0-5.0) g/dL Urine Protein 30 mg/dl H (NEGATIVE) 05/14/19 05/14/19 05/15/19 Range/Units 06:25 06:25 13:30 RBC 3.58 L (4.40-5.70) M/uL Hgb 10.6 L (14.0-18.0) gm/dl Hct 32.5 L (42.0-52.0) % Plt Count 125 L (130-400) K/uL Neutrophils % 81.0 H (47-80) % Band Neutrophils % 9.0 H (0-5) % Lymphocytes % 6.8 L (16-45) % Lymphocytes 5.0 L (16-45) % Sodium 132 L (136-145) mmol/L Potassium (3.4-4.5) mmol/L Chloride 95 L (98-107) mmol/L Carbon Dioxide 21.0 L 21.0 L (22-29) mmol/L Anion Gap (7-16) BUN 35 H 41 H (8-23) mg/dL Creatinine 2.3 H 2.6 H (0.7-1.2) mg/dL Random Glucose 130 H 130 H (74-109) mg/dL Calcium 8.4 L 8.1 L (8.8-10.2) mg/dL Alkaline Phosphatase 30 L (40-129) U/L Total Protein 6.2 L (6.6-8.7) g/dL Albumin 3.6 L (4.0-5.0) g/dL Urine Protein (NEGATIVE) 05/17/19 Range/Units 06:10 RBC (4.40-5.70) M/uL Hgb (14.0-18.0) gm/dl Hct (42.0-52.0) % Plt Count (130-400) K/uL Neutrophils % (47-80) % Band Neutrophils % (0-5) % Lymphocytes % (16-45) % Lymphocytes (16-45) % Sodium (136-145) mmol/L Potassium (3.4-4.5) mmol/L Chloride (98-107) mmol/L Carbon Dioxide 21.0 L (22-29) mmol/L Anion Gap (7-16) BUN 37 H (8-23) mg/dL Creatinine 2.1 H (0.7-1.2) mg/dL Random Glucose 124 H (74-109) mg/dL Calcium 8.4 L (8.8-10.2) mg/dL Alkaline Phosphatase (40-129) U/L Total Protein (6.6-8.7) g/dL Albumin (4.0-5.0) g/dL Urine Protein (NEGATIVE) Condition at Discharge: (3) Guarded Discharge Diagnosis: scrotal cellulitis , Renal failure , urinary retention and BPH and hyperten VTE Discharge VTE Reason For No Overlap Therapy: Not Indicated Discharge Medications - Discharge Medications Prescriptions: Cefdinir [Omnicef] 300 mg PO BID #28 cap Oxycodone HCl/Acetaminophen [Percocet 7.5mg/325mg] 1 each PO Q4H PRN #18 tab PRN Reason: Pain - Mod To Severe (5-10) Linezolid [Zyvox] 600 mg PO BID #28 tablet Home Medications: Ambulatory Orders Carvedilol 12.5 mg PO BID 90 Days #180 08/28/17 [Last Taken Unknown] Cholecalciferol (Vitamin D3) [Vitamin D3] 1,000 unit PO DAILY 08/28/17 [Last Taken Unknown] Fenofibrate Nanocrystallized [Triglide] 160 mg PO DAILY 08/28/17 [Last Taken Unknown] Fish Oil/Dha/Epa [Fish Oil 1,200 mg Fish Oil] 2 each PO DAILY 08/28/17 [Last Taken Unknown] Aspirin 325 mg PO DAILY 90 Days #90 tab 09/13/18 [Last Taken Unknown] Cefdinir [Omnicef] 300 mg PO BID #28 cap 05/17/19 [Last Taken Unknown] Linezolid [Zyvox] 600 mg PO BID #28 tablet 05/17/19 [Last Taken Unknown] Oxycodone HCl/Acetaminophen [Percocet 7.5mg/325mg] 1 each PO Q4H PRN #18 tab 05/17/19 [Last Taken Unknown] Discharge Plan - Discharge Instructions Activity at Discharge: Increase Activity as Tolerated Diet at Discharge: Low Salt Diet Additional Instructions: follow up with Dr Barbosa or one of his assistances in 5 days support scrotum with walking around take omnicef 300 twice a day for 14 days take zyvox 600 mg twice a day for 14 days stop hctz and follow creat to check his kidney function Dr Barbosa , outpaatient BMP in 4 days Quality Measures - Quality Measures Quality Measures: Advance Directives, Documentation of Current Medications in Medical Record, Elder Maltreatment Screen and Follow-Up Plan, Screening for High Blood Pressure and F/U Documented - Current Medications Quality Measure: Measure #130: Documentation of Current Medications Documentation of Current Medications: <Current Medications Documented/Reviewed> [G4025] - Blood Pressure Screening Quality Measure: Screening for High Blood Pressure and Follow-Up Documented Does Patient Have Any of the Following: Active Dx of HTN Blood Pressure Classification: Pre-Hypertensive BP Reading Systolic Measurement: 159 Diastolic Measurement: 85 Screening for High Blood Pressure: Patient Exclusion, Hx of HTN [G9744] - Advance Directives Quality Measure: Measure #47: Care Plan Advance Directives Established: No Advance Directives Information Provided To Patient: Declined Advance Directives on File: No Living Will: No Power of Adjustment Supervisor: No Advance Care Planning: <Care Plan/Decision Maker Documented; Discussed & Documented> [2084E] - Elder Abuse Suspicion Index Screening: Elder Abuse Suspicion Index Screening Rely on people for bathing, dressing, shopping, banking, etc: No Prevented from getting food, clothes, medication, etc: No Made to feel shamed or threatened by someone: No Forced to sign papers or use money against will: No Feel afraid, touched in ways not wanted or hurt physically: No Poor eye contact, withdrawn, malnourished, cuts or bruises: No Screening Result: Negative result EASI Reference Information: Lucho KENDALL, Ellen C, Lisa D, Blanca Simmons.Development and validation of a tool to assist physicians identification of elder abuse: The Elder Abuse Suspicion Index (EASI ). Journal of Elder Abuse and Neglect, 2008; 20 (3): 276-300. - Elder Maltreatment Screen Quality Measures: Elder Maltreatment Screen and Follow-Up Plan Elder Maltreatment Screen: <Negative, No Follow-Up Plan Required> [G8734]
== END 2019-05-17 13:00 | disposition home or self-care (01) | DRG 728 ==
LOC: ER 08:12 → MEDSURG 11:24
PROVIDERS: ADMIT Internal Medicine; ATTEND Internal Medicine
DX: N49.2 Inflammatory disorders of scrotum (principal); R11.11 Vomiting without nausea; R42 Dizziness and giddiness; R68.83 Chills (without fever); R33.9 Retention of urine, unspecified; N18.9 Chronic kidney disease, unspecified; I10 Essential (primary) hypertension; N28.9 Disorder of kidney and ureter, unspecified; K21.9 Gastro-esophageal reflux disease without esophagitis; E03.9 Hypothyroidism, unspecified; Z95.5 Presence of coronary angioplasty implant and graft; Z98.61 Coronary angioplasty status
CPT/HCPCS: 74176; 76870; 80048; 80053; 81001; 82310; 85027; 87400; 94010; 94640; 94761; 96365; 99220; 99233; 99239; 99285; J0696; J1650